=== PATIENT | female | born 1975 | race African-American/Black ===

== ENCOUNTER 2018-04-10 20:32 | Inpatient (IN) | payer MEDICAID ==
[2018-04-10] MEDS ORDERED: ONDANSETRON 4 MG TAB.RAPDIS PO ONE (22:15)
[2018-04-10] MEDS ORDERED: OXYCODONE-ACETAMINOPHEN 5-325 MG TABLET PO ONE (22:15)
--- NOTE | 2018-04-10 22:16 | ER Document Report ---
ED Medical Screen (RME) - General Chief Complaint: Abdominal Pain Stated Complaint: ABDOMINAL PAIN Time Seen by Provider: 04/10/18 22:14 Notes: 42-year-old female with chief complaint of sharp right-sided abdominal pain that started last night and has persisted and worsened today. Pain radiates around to her right flank. Reports nausea, denies vomiting. Denies any other complaints. Only past medical history reported is a . TRAVEL OUTSIDE OF THE [place] IN LAST 30 DAYS: No Past Medical History - Social History Chew tobacco use (# tins/day): No Frequency of alcohol use: None Drug Abuse: None Renal/ Medical History: Denies: Hx Peritoneal Dialysis Physical Exam - Vital signs Vitals: Temp Pulse Resp BP Pulse Ox 98.4 F 109 H 16 140/88 H 98 04/10/18 20:37 04/10/18 20:37 04/10/18 20:37 04/10/18 20:37 04/10/18 20:37 - Abdominal Tenderness: Tender - Positive Jane's sign with guarding in the right upper quadrant and tenderness in the epigastric area. Remaining abdomen is benign Course - Vital Signs Vital signs: Temp Pulse Resp BP Pulse Ox 98.4 F 109 H 16 140/88 H 98 04/10/18 20:37 04/10/18 20:37 04/10/18 20:37 04/10/18 20:37 04/10/18 20:37
[2018-04-10 22:51] LABS: ABSOLUTE LYMPHOCYTES (AUTO) 1.3 10^3/uL (0.5-4.7); ABSOLUTE MONOCYTES (AUTO) 0.6 10^3/uL (0.1-1.4); ABSOLUTE NEUT (AUTO) 6.9 10^3/uL (1.7-8.2); BASOPHILS % (AUTO) 0.2 % (0-2); EOSINOPHILS % (AUTO) 0.4 % (0-6); HEMATOCRIT 44.1 % (36.0-47.0); LYMPHOCYTES % (AUTO) 14.4 % (13-45); MEAN CORPUSCULAR HEMOGLOBIN 32.6 pg (27.0-33.4); MEAN CORPUSCULAR HGB CONC 34.1 g/dL (32.0-36.0); MEAN CORPUSCULAR VOLUME 96 fl (80-97); MONOCYTES % (AUTO) 6.7 % (3-13); PLATELET COUNT 234 10^3/uL (150-450); RED BLOOD COUNT 4.61 10^6/uL (3.72-5.28); RED CELL DISTRIBUTION WIDTH 12.3 % (11.5-14.0); SEGMENTED NEUTROPHILS % (AUTO) 78.3 % (42-78); TOTAL CELLS COUNTED % (AUTO) 100 %; WHITE BLOOD COUNT 8.7 10^3/uL (4.0-10.5)
[2018-04-10 22:56] LABS: APPEARANCE,URINE SLIGHTLY-CLOUDY; BILIRUBIN,URINE NEGATIVE (NEGATIVE); COLOR,URINE YELLOW; GLUCOSE, URINE >=500 mg/dL (NEGATIVE); KETONES,URINE 20 mg/dL (NEGATIVE); LEUKOCYTE ESTERASE,URINE SMALL (NEGATIVE); NITRITE,URINE POSITIVE (NEGATIVE); PROTEIN,URINE 30 mg/dL (NEGATIVE); URINE SPECIFIC GRAVITY 1.036; UROBILINOGEN,URINE NEGATIVE mg/dL (<2.0)
[2018-04-10 23:01] LABS: ALANINE AMINOTRANSFERASE 36 U/L (9-52); ALBUMIN 4.5 g/dL (3.5-5.0); ALKALINE PHOSPHATASE 109 U/L (38-126); ANION GAP 10 (5-19); ASPARTATE AMINO TRANSFERASE 27 U/L (14-36); BILIRUBIN,DIRECT 0.2 mg/dL (0.0-0.4); BILIRUBIN,TOTAL 0.9 mg/dL (0.2-1.3); BLOOD UREA NITROGEN 11 mg/dL (7-20); CALCIUM 9.6 mg/dL (8.4-10.2); CARBON DIOXIDE 27 mmol/L (22-30); CHLORIDE 97 mmol/L (98-107); GLUCOSE 315 mg/dL (75-110); LIPASE 78.1 U/L (23-300); POTASSIUM 4.4 mmol/L (3.6-5.0); SODIUM 134.3 mmol/L (137-145); TOTAL PROTEIN 7.5 g/dL (6.3-8.2)
--- NOTE | 2018-04-11 00:41 | RADIOLOGY REPORT (SQ) ---
EXAM DESCRIPTION: US ABDOMEN LIMITED COMPLETED DATE/TME: 04/10/2018 22:15 CLINICAL HISTORY: 42 years, Female, sharp RUQ and epigastric pain COMPARISON: None. TECHNIQUE: Limited right upper quadrant ultrasound LIMITATIONS: None. FINDINGS: The liver is homogenous in echotexture without focal lesion. No gallstones. Negative sonographic Jane sign. CBD measures 4.8 mm. Visualized pancreas, right kidney are unremarkable. Visualized abdominal aorta are unremarkable. No ascites IMPRESSION: Unremarkable exam copyright 2010 [employer]- All Rights Reserved
[2018-04-11] MEDS ORDERED: KETOROLAC TROMETHAMINE INJ/PF 30 MG/1 ML SDV IV ONE (02:05)
[2018-04-11] MEDS ORDERED: NORMAL SALINE 1000 ML 1,000 ML IV ONE ×2 (02:05→04:09)
--- NOTE | 2018-04-11 02:07 | ER Document Report ---
ED General - General Chief Complaint: Abdominal Pain Stated Complaint: ABDOMINAL PAIN Time Seen by Provider: 04/10/18 22:14 Notes: Patient is a 42-year-old female with a past medical history of obesity, "and I am pretty sure I am diabetic" who presents with approximately 24 hours of progressively worsening right lower quadrant abdominal pain. The patient describes it as a grossly worsening pain to the right lower abdomen that is a dull, throbbing, constant pain. States that it started out as a very mild, dull aching pain when she woke up this morning but became so severe that she needed to leave work tonight. She notes associated nausea but no vomiting. States movement worsens the pain. Ibuprofen has moderately improved the pain. No history of similar symptoms in the past. Only prior surgical history is a C- section. Does not have a local primary care physician. TRAVEL OUTSIDE OF THE [place] IN LAST 30 DAYS: No - Related Data Allergies/Adverse Reactions: No Known Allergies Allergy (Verified 04/11/18 02:29) Past Medical History - General Information source: Patient - Social History Smoking Status: Current Every Day Smoker Chew tobacco use (# tins/day): No Frequency of alcohol use: None Drug Abuse: None Lives with: Spouse/Significant other Family History: Reviewed & Not Pertinent Patient has suicidal ideation: No Patient has homicidal ideation: No Renal/ Medical History: Denies: Hx Peritoneal Dialysis Review of Systems - Review of Systems Notes: Constitutional: Negative for fever. HENT: Negative for sore throat. Eyes: Negative for visual changes. Cardiovascular: Negative for chest pain. Respiratory: Negative for shortness of breath. Gastrointestinal: Positive for abdominal pain, Negative for vomiting and diarrhea Genitourinary: Negative for dysuria. Musculoskeletal: Negative for back pain. Skin: Negative for rash. Neurological: Negative for headaches, weakness or numbness. 10 point ROS negative except as marked above and in HPI. Physical Exam - Vital signs Vitals: Temp Pulse Resp BP Pulse Ox 98.4 F 109 H 16 140/88 H 98 04/10/18 20:37 04/10/18 20:37 04/10/18 20:37 04/10/18 20:37 04/10/18 20:37 Interpretation: Tachycardic Notes: PHYSICAL EXAMINATION: GENERAL: Well-appearing, well-nourished and in no acute distress. HEAD: Atraumatic, normocephalic. EYES: Pupils equal round and reactive to light, extraocular movements intact, sclera anicteric, conjunctiva are normal. ENT: nares patent, oropharynx clear without exudates. Moist mucous membranes. NECK: Normal range of motion, supple without lymphadenopathy LUNGS: Breath sounds clear to auscultation bilaterally and equal. No wheezes rales or rhonchi. HEART: Regular rate and rhythm without murmurs ABDOMEN: Soft, focal tenderness the right lower abdomen but no other areas of localized tenderness, normoactive bowel sounds. No guarding, no rebound. No masses appreciated. EXTREMITIES: Normal range of motion, no pitting or edema. No cyanosis. NEUROLOGICAL: No focal neurological deficits. Moves all extremities spontaneously and on command. PSYCH: Normal mood, normal affect. SKIN: Warm, Dry, normal turgor, no rashes or lesions noted. Course - Re-evaluation Re-evalutation: 04/11/18 02:07 Patient presents with focal right lower quadrant abdominal tenderness that is been getting progressively worse throughout the day today. Concern for possible acute appendicitis. Labs are unremarkable with exception of hyperglycemia, appears to be a new diagnosis of type 2 diabetes. Urinalysis does show findings consistent with a urinary tract infection although I do not believe that this would reasonably account for her right lower quadrant pain which is focal on exam without rebound. But it is quite localized to the area and given that she has had progressive worsening of the pain throughout the day today and quite concerned for an acute appendicitis. Will proceed with CT abdomen pelvis and reassess 04/11/18 04:19 CT of the abdomen and pelvis does reveal a possible early abscess with multiple inflamed bowel loops in the right lower quadrant. Patient has no known history of Crohn's disease or any alternative inflammatory bowel disease. I discussed with the surgeon on-call Dr. Clay who will consult on the patient but does not feel she requires any acute surgical management and questions whether or not there is truly an abscess present. He has requested that I speak to medicine and have them hospitalized the patient for IV antibiotics, management of diab etes. 04/11/18 04:38 I spoke to the nighttime hospitalist Dr. Restrepo who will evaluate the patient although does feel like surgery should admit the patient. I have informed patient about plan for hospitalization and IV antibiotics. - Vital Signs Vital signs: Temp Pulse Resp BP Pulse Ox 98.1 F 91 16 125/77 99 04/11/18 01:20 04/11/18 01:20 04/11/18 01:20 04/11/18 01:20 04/11/18 01:20 - Laboratory Result Diagrams: 04/10/18 22:25 04/10/18 22:25 Laboratory results interpreted by me: 04/10/18 04/10/18 04/10/18 22:25 22:25 22:25 Seg Neutrophils % 78.3 H Sodium 134.3 L Chloride 97 L Creatinine 0.50 L Glucose 315 H Urine Protein 30 H Urine Glucose (UA) >=500 H Urine Ketones 20 H Urine Blood SMALL H Urine Nitrite POSITIVE H Ur Leukocyte Esterase SMALL H - Diagnostic Test Radiology reviewed: Reports reviewed Discharge - Discharge Clinical Impression: Right lower quadrant abdominal pain, Inflammation of small intestine Condition: Fair Disposition: ADMITTED INPATIENT Admitting Provider: Hospitalist Unit Admitted: Medical Floor
--- NOTE | 2018-04-11 04:02 | RADIOLOGY REPORT (SQ) ---
EXAM DESCRIPTION: CT ABDOMEN PELVIS WITH IV CONTRAST COMPLETED DATE/TME: 04/11/2018 02:05 CLINICAL HISTORY: 42 years, Female, rlq pain COMPARISON: None. TECHNIQUE: 733 Images stored on PACS. All CT scanners at this facility use dose modulation, iterative reconstruction, and/or weight based dosing when appropriate to reduce radiation dose to as low as reasonably achievable (ALARA). [facility]: Dose Right [facility]: CareDose [facility]: Dose Right [facility]: Teradose 4D [facility]: [employer] LIMITATIONS: None. FINDINGS: Visualized lung bases are unremarkable. Osseous structures are grossly intact. Fatty infiltrative change to the liver. The spleen, adrenal glands, pancreas, kidneys are unremarkable. The gallbladder is present. Normal appendix. No gross evidence for bowel obstruction. However, there are abnormal thick-walled fluid-filled loops of small bowel distally in the right lower quadrant with surrounding inflammatory change. Possible small developing abscess/phlegmon in the anterior lower right hemipelvis, measuring approximately 2.6 x 1.9 x 2.2 centimeters.. There is no free air. IUD in place. Air and fluid in the vaginal cuff. Correlate with menstrual history. IMPRESSION: Abnormal, thick-walled fluid-filled loops of small bowel distally with surrounding inflammatory change and phlegmon. Possible small developing abscess also noted. Correlate with any history of inflammatory bowel disease. No obstruction at this time. Diffuse fatty infiltrative change to the liver. TECHNICAL DOCUMENTATION: Quality ID # 436: Final reports with documentation of one or more dose reduction techniques (e.g., Automated exposure control, adjustment of the mA and/or kV according to patient size, use of iterative reconstruction technique) copyright 2011 [employer]- All Rights Reserved
[2018-04-11] MEDS ORDERED: PIPERACILLIN/TAZOBACTAM 3.375 GM VIAL IV ONE (04:08)
[2018-04-11] MEDS ORDERED: MORPHINE SULFATE 10 MG/ML INJ IV PRN ×5 (04:09→07:35)
[2018-04-11] MEDS ORDERED: INSULIN REG, HUMAN 100 UNIT/ML 3 ML VIAL (PYX) SUBCUT ONE (04:10)
[2018-04-11] MEDS ORDERED: ONDANSETRON HCL INJ/PF 4 MG/2 ML SDV IV PRN ×2 (04:56→07:35)
[2018-04-11] MEDS ORDERED: RINGERS SOLUTION,LACTATED 1,000 ML IV PRN (04:56)
[2018-04-11] MEDS ORDERED: LABETALOL HCL INJ 20 MG/4 ML DISP.SYRIN IV PRN (05:09)
[2018-04-11] MEDS ORDERED: HYDRALAZINE HCL INJ/PF 20 MG/1 ML SDV IV PRN (05:09)
[2018-04-11] MEDS ORDERED: ACETAMINOPHEN 650 MG SUPP.RECT PR PRN (05:09)
[2018-04-11] MEDS: HEPARIN SOD (PORCINE) 5,000 UNIT/ML 1 ML SYRINGE SUBCUT SCH ×3 (05:28→23:25)
--- NOTE | 2018-04-11 05:28 | PDOC H&P ---
History of Present Illness Admission Date/PCP: 04/11/18 04:57 FRANCES CLARK MD History of Present Illness: EVIE OLSON is a 42 year old female Past Medical History Cardiac Medical History: Reports: None Pulmonary Medical History: Reports: None EENT Medical History: Reports: None Neurological Medical History: Reports: None Endocrine Medical History: Reports: None Renal/ Medical History: Reports: None Malignancy Medical History: Reports: None GI Medical History: Reports: None Musculoskeltal Medical History: Reports: None Skin Medical History: Reports: None Psychiatric Medical History: Reports: None Traumatic Medical History: Reports: None Hematology: Reports: None Infectious Medical History: Reports: None Past Surgical History Past Surgical History: Reports: None Social History Lives with: Spouse/Significant other Smoking Status: Current Every Day Smoker Family History Family History: Reviewed & Not Pertinent Parental Family History Reviewed: No Children Family History Reviewed: No Sibling(s) Family History Reviewed.: No Medication/Allergy Allergies/Adverse Reactions: No Known Allergies Allergy (Verified 04/11/18 02:29) Physical Exam Vital Signs: Temp Pulse Resp BP Pulse Ox 98.4 F 91 16 130/94 H 100 04/11/18 04:51 04/11/18 01:20 04/11/18 04:51 04/11/18 04:51 04/11/18 04:51 Intake & Output 04/09/18 04/10/18 04/11/18 06:59 06:59 06:59 Intake Total 1000 Balance 1000 Weight 93.3 kg General appearance: PRESENT: mild distress Head exam: PRESENT: atraumatic Neck exam: PRESENT: full ROM Respiratory exam: PRESENT: clear to auscultation jina Cardiovascular exam: PRESENT: RRR Pulses: PRESENT: normal carotid pulses, normal radial pulses, normal femoral pulses GI/Abdominal exam: PRESENT: other - abd softly distended, few bs tender in rlq wth rebound. Extremities exam: PRESENT: full ROM Musculoskeletal exam: PRESENT: ambulatory Neurological exam: PRESENT: alert, awake, oriented to time, oriented to situation Skin exam: PRESENT: warm Results Laboratory Results: 04/10/18 22:25 04/10/18 22:25 04/10/18 04/10/18 04/10/18 22:25 22:25 22:25 WBC 8.7 RBC 4.61 Hgb 15.0 Hct 44.1 MCV 96 MCH 32.6 MCHC 34.1 RDW 12.3 Plt Count 234 Seg Neutrophils % 78.3 H Lymphocytes % 14.4 Monocytes % 6.7 Eosinophils % 0.4 Basophils % 0.2 Absolute Neutrophils 6.9 Absolute Lymphocytes 1.3 Absolute Monocytes 0.6 Absolute Eosinophils 0.0 Absolute Basophils 0.0 Sodium 134.3 L Potassium 4.4 Chloride 97 L Carbon Dioxide 27 Anion Gap 10 BUN 11 Creatinine 0.50 L Est GFR ( Amer) > 60 Est GFR (Non-Af Amer) > 60 Glucose 315 H Calcium 9.6 Total Bilirubin 0.9 AST 27 ALT 36 Alkaline Phosphatase 109 Total Protein 7.5 Albumin 4.5 Lipase 78.1 Urine Color YELLOW Urine Appearance SLIGHTLY-CLOUDY Urine pH 5.0 Ur Specific [place] 1.036 Urine Protein 30 H Urine Glucose (UA) >=500 H Urine Ketones 20 H Urine Blood SMALL H Urine Nitrite POSITIVE H Ur Leukocyte Esterase SMALL H Urine WBC (Auto) 13 Urine RBC (Auto) 2 Impressions: Abdomen Ultrasound 04/10/18 22:15 IMPRESSION: Unremarkable exam copyright 2010 [employer]- All Rights Reserved Abdomen/Pelvis CT 04/11/18 02:05 IMPRESSION: Abnormal, thick-walled fluid-filled loops of small bowel distally with surrounding inflammatory change and phlegmon. Possible small developing abscess also noted. Correlate with any history of inflammatory bowel disease. No obstruction at this time. Diffuse fatty infiltrative change to the liver. TECHNICAL DOCUMENTATION: Quality ID # 436: Final reports with documentation of one or more dose reduction techniques (e.g., Automated exposure control, adjustment of the mA and/or kV according to patient size, use of iterative reconstruction technique) copyright 2011 [employer]- All Rights Reserved Assessment & Plan - Inpatient Certification Medical Necessity: Need for Pain Control, Need for IV Antibiotics, Need for Surgery - Plan Summary Plan Summary: pt with acute onset of abd pain starting earlier this evening ct scan shows phlegmon, thickened small bowel loops abscess pt with peritoneal signs on exam c/w peritonitis r/o small bowel perforation, meckels diverticulitis doubt crohns plan on diagnostic laparoscopy, possible laparotomy possible small bowel resection I have explained risks and benifits to pt and family present possible need of colostomy possible need for additional surgery infection pulm embolism stroke mi injury to adjacent organs pt understnds and agreees to proceed.
--- NOTE | 2018-04-11 05:46 | PDOC CONSULTATION ---
Consultation Consult Date: 04/11/18 Attending physician:: SHIRLEY RUIZ Consult reason:: Abdominal pain in a diabetic History of Present Illness Admission Date/PCP: 04/11/18 04:57 FRANCES CLARK MD Patient complains of: Abdominal pain History of Present Illness: EVIE OLSON is a 42 year old female who presented to the emergency room with a 1 day history of gradually worsening right lower quadrant abdominal pain. The pain is now a severe, constant, internal squeezing intense pressure localized in the right lower abdomen bounded medially at the midline, just above the pubic symphysis for the lower aspect and laterally extends to the mid clavicular line with its superior boundary at the level of the umbilicus. The pain is intensified by trying to eat or drink anything and is also significantly worse when she moves or bears weight on her right side. She has no pain or burning with voiding but the active voiding (pressure to express urine) causes increased discomfort in her abdomen at the site indicated previously. She denies nausea and vomiting. She had a normal bowel movement within 12 hours prior to the onset of her abdominal pain but has not had a bowel movement since that time. In the emergency room she was found to have right lower quadrant pain and a CT scan revealing a phlegmon and marked inflammatory changes without definitive abscess in the right lower quadrant. The appendix was judged to be normal on CT scan. Patient also has a history of obesity and diabetes mellitus type 2 [id number]. She will be admitted by the surgical service for further evaluation and treatment of her right lower quadrant pain and we will participate in her postoperative management for her diabetic control as required. Past Medical History Cardiac Medical History: Denies: Coronary Artery Disease, DVT, Hyperlipidema, Hypertension, Pulmonary Embolism Pulmonary Medical History: Denies: Asthma, Chronic Obstructive Pulmonary Disease (COPD), Respiratory Failure EENT Medical History: Reports: None Neurological Medical History: Denies: Multiple Sclerosis, Seizures Endocrine Medical History: Reports: Diabetes Mellitus Type 2, Obesity Denies: Diabetes Mellitus Type 1, Hyperthyroidism, Hypothyroidism Renal/ Medical History: Denies: Chronic Kidney Disease, Nephrolithiasis Malignancy Medical History: Reports: None GI Medical History: Denies: Cirrhosis, Gastroesophageal Reflux Disease, Hepatitis, Peptic Ulcer Disease Musculoskeltal Medical History: Denies: Arthritis, Fibromyalgia, Gout Skin Medical History: Denies: Eczema, Psoriasis Psychiatric Medical History: Reports: Tobacco Dependency Denies: Alcohol Dependency, Substance Abuse Traumatic Medical History: Reports: None Hematology: Denies: Anemia, Bleeding Tendencies Infectious Medical History: Reports: None Past Surgical History Past Surgical History: Reports: Section Social History Information Source: Patient Lives with: Family, Spouse/Significant other Smoking Status: Current Every Day Smoker Frequency of Alcohol Use: Social Amount of Alcoholic Beverages Per Day: Drinks on average 1-2 beers daily Hx Recreational Drug Use: Yes Drugs: Marijuana Hx Prescription Drug Abuse: No - Advance Directive Resuscitation Status: Full Code Surrogate healthcare decision maker:: Vinod Alvarez Family History Family History: DM, Hypertension Parental Family History Reviewed: Yes Children Family History Reviewed: No Sibling(s) Family History Reviewed.: Yes Medication/Allergy Allergies/Adverse Reactions: No Known Allergies Allergy (Verified 04/11/18 02:29) Review of Systems Constitutional: ABSENT: chills, fever(s) Eyes: ABSENT: visual disturbances, other - Ocular pain Ears: ABSENT: hearing changes, other - Ear pain Nose, Mouth, and Throat: ABSENT: mouth pain, sore throat Cardiovascular: ABSENT: chest pain, dyspnea on exertion, edema, orthropnea, palpitations Respiratory: ABSENT: cough, dyspnea Gastrointestinal: PRESENT: as per HPI, abdominal pain. ABSENT: constipation, diarrhea, nausea, vomiting Genitourinary: ABSENT: dysuria, hematuria Musculoskeletal: ABSENT: deformity, joint swelling Integumentary: ABSENT: pruritus, rash Neurological: ABSENT: confusion, convulsions Psychiatric: ABSENT: anxiety, depression Endocrine: ABSENT: cold intolerance, heat intolerance Hematologic/Lymphatic: ABSENT: easy bleeding, easy bruising Physical Exam Vital Signs: Temp Pulse Resp BP Pulse Ox 98.4 F 91 16 130/94 H 100 04/11/18 04:51 04/11/18 01:20 04/11/18 04:51 04/11/18 04:51 04/11/18 04:51 Intake & Output 04/09/18 04/10/18 04/11/18 23:59 23:59 23:59 Intake Total 1000 Balance 1000 Weight 93.3 kg General appearance: PRESENT: cooperative, mild distress - Secondary to right lower quadrant abdominal pain despite having received morphine within the last 1 hour., obese Head exam: PRESENT: atraumatic, normocephalic Eye exam: PRESENT: conjunctiva pink, EOMI. ABSENT: scleral icterus Ear exam: PRESENT: normal external ear exam. ABSENT: bleeding, drainage Mouth exam: PRESENT: dry mucosa, neck supple Neck exam: ABSENT: thyromegaly, tracheal deviation Respiratory exam: PRESENT: clear to auscultation jina, symmetrical, unlabored Cardiovascular exam: PRESENT: RRR. ABSENT: clicks, gallop, rubs Pulses: PRESENT: normal radial pulses, normal dorsalis pedis pul Vascular exam: PRESENT: normal capillary refill. ABSENT: pallor GI/Abdominal exam: PRESENT: normal bowel sounds, soft, tenderness - Localized in the right lower abdomen bounded medially at the midline, just above the pubic symphysis for the lower aspect and laterally extends to the mid clavicular line with its superior boundary at the level of the umbilicus Rectal exam: PRESENT: deferred Extremities exam: ABSENT: joint swelling, pedal edema Musculoskeletal exam: PRESENT: full ROM, normal inspection Neurological exam: PRESENT: alert, oriented to person, oriented to place, oriented to time, oriented to situation, CN II-XII grossly intact. ABSENT: motor sensory deficit Psychiatric exam: PRESENT: appropriate affect, normal mood Skin exam: PRESENT: dry, intact, warm. ABSENT: jaundice, rash, urticaria Results Laboratory Results: 04/10/18 22:25 04/10/18 22:25 04/10/18 04/10/18 04/10/18 22:25 22:25 22:25 WBC 8.7 RBC 4.61 Hgb 15.0 Hct 44.1 MCV 96 MCH 32.6 MCHC 34.1 RDW 12.3 Plt Count 234 Seg Neutrophils % 78.3 H Lymphocytes % 14.4 Monocytes % 6.7 Eosinophils % 0.4 Basophils % 0.2 Absolute Neutrophils 6.9 Absolute Lymphocytes 1.3 Absolute Monocytes 0.6 Absolute Eosinophils 0.0 Absolute Basophils 0.0 Sodium 134.3 L Potassium 4.4 Chloride 97 L Carbon Dioxide 27 Anion Gap 10 BUN 11 Creatinine 0.50 L Est GFR ( Amer) > 60 Est GFR (Non-Af Amer) > 60 Glucose 315 H Calcium 9.6 Total Bilirubin 0.9 AST 27 ALT 36 Alkaline Phosphatase 109 Total Protein 7.5 Albumin 4.5 Lipase 78.1 Urine Color YELLOW Urine Appearance SLIGHTLY-CLOUDY Urine pH 5.0 Ur Specific [place] 1.036 Urine Protein 30 H Urine Glucose (UA) >=500 H Urine Ketones 20 H Urine Blood SMALL H Urine Nitrite POSITIVE H Ur Leukocyte Esterase SMALL H Urine WBC (Auto) 13 Urine RBC (Auto) 2 Impressions: Abdomen Ultrasound 04/10/18 22:15 IMPRESSION: Unremarkable exam copyright 2010 [employer]- All Rights Reserved Abdomen/Pelvis CT 04/11/18 02:05 IMPRESSION: Abnormal, thick-walled fluid-filled loops of small bowel distally with surrounding inflammatory change and phlegmon. Possible small developing abscess also noted. Correlate with any history of inflammatory bowel disease. No obstruction at this time. Diffuse fatty infiltrative change to the liver. TECHNICAL DOCUMENTATION: Quality ID # 436: Final reports with documentation of one or more dose reduction techniques (e.g., Automated exposure control, adjustment of the mA and/or kV according to patient size, use of iterative reconstruction technique) copyright 2010 [employer]- All Rights Reserved Assessment & Plan - Diagnosis (1) Diabetes mellitus type 2 in obese Is this a current diagnosis for this admission?: Yes Plan: The patient's diabetes will be managed postoperatively by the hospitalist service. Until such time as she is able to eat a diabetic diet she should be managed with q. 4 or q. 6-hour Accu-Cheks with a sliding scale for control utilizing regular insulin. (2) Obesity (BMI 30-39.9) Is this a current diagnosis for this admission?: Yes Plan: Patient's obesity will be addressed with a consultation for dietary services to discuss weight loss and lifestyle changes with the patient after her surgical recovery has begun. (3) Tobacco use disorder, moderate, dependence Is this a current diagnosis for this admission?: Yes Plan: Smoking cessation has been advised. Smoking cessation counseling was given. A nicotine replacement patch will be made available for the patient. (4) Right lower quadrant abdominal pain Is this a current diagnosis for this admission?: Yes Plan: Patient is being treated by the surgical service and plans are to take her to surgery [facility]. Initial antibiotic orders have been entered by myself to facilitate the patient's treatment. - Time Time Spent: 30 to 50 Minutes Smoking Cessation Education: 3 to 10 minutes Anticipated discharge: Home - Inpatient Certification Based on my medical assessment, after consideration of the patient's comorbidities, presenting symptoms, or acuity I expect that the services needed warrant INPATIENT care.: Yes I certify that my determination is in accordance with my understanding of Medicare's requirements for reasonable and necessary INPATIENT services [42 CFR 412.3e].: Yes Medical Necessity: Need Close Monitoring Due to Risk of Patient Decompensation, Need For IV Fluids, Need for Pain Control, Need for IV Antibiotics, Need for Surgery, Risk of Complication if Not Cared For in Hospital
[2018-04-11] MEDS ORDERED: LEVOFLOXACIN 750 MG/D5W RTU 750 MG/150 ML RTUPB IV SCH (06:00)
[2018-04-11] MEDS ORDERED: MIDAZOLAM 2 MG/2 ML INJ ONE (06:18)
[2018-04-11] MEDS ORDERED: HYDROMORPHONE HCL INJ/PF 2 MG/ML AMPULE ONE (06:18)
[2018-04-11] MEDS ORDERED: FENTANYL CITRATE INJ/PF 100 MCG/2 ML AMPUL ONE ×2 (06:18→12:07)
[2018-04-11] MEDS ORDERED: PROPOFOL INJ 200 MG/20 ML VIAL IV ONE (06:19)
[2018-04-11] MEDS ORDERED: ACETAMINOPHEN 1,000 MG/100 ML RTUPB IV ONE (06:19)
[2018-04-11] MEDS ORDERED: SUGAMMADEX SODIUM 200 MG/2 ML SDV IV ONE (06:32)
[2018-04-11] MEDS ORDERED: DIPHENHYDRAMINE HCL 50 MG/ML VIAL IV PRN (07:35)
[2018-04-11] MEDS ORDERED: MEPERIDINE HCL/PF INJ 25 MG/1 ML DISP.SYRIN IV PRN (07:35)
[2018-04-11] MEDS ORDERED: PROMETHAZINE HCL INJ 25 MG/1 ML VIAL IV PRN ×2 (07:35)
[2018-04-11] MEDS ORDERED: FENTANYL CITRATE INJ/PF 100 MCG/2 ML AMPUL IV PRN ×3 (07:35)
[2018-04-11] MEDS ORDERED: LIDOCAINE 1%/EPINEPHRINE INJ 20 ML VIAL ONE (08:41)
[2018-04-11] MEDS ORDERED: PIPERACILLIN/TAZOBACTAM 4.5 GM VIAL IV SCH (09:00)
[2018-04-11] MEDS ORDERED: DEXTROSE 5%-LACTATED RINGERS 1,000 ML IV PRN (09:06)
[2018-04-11] MEDS ORDERED: ONDANSETRON HCL INJ/PF 4 MG/2 ML SDV ONE (09:20)
[2018-04-11] MEDS ORDERED: DEXAMETHASONE SOD PHOSPHATE INJ 4 MG/1 ML VIAL ONE (09:21)
[2018-04-11] MEDS ORDERED: CEFOXITIN 1 GM/D5W RTU 1 GM/50 ML RTUPB IV SCH (10:00)
[2018-04-11] MEDS ORDERED: DOXYCYCLINE HYCLATE INJ 100 MG VIAL IV SCH (10:00)
[2018-04-11] MEDS: FAMOTIDINE INJ/PF 20 MG/2 ML SDV IV SCH ×2 (13:25→23:22)
[2018-04-11] MEDS: MORPHINE SULFATE 10 MG/ML INJ IV PRN (13:25)
[2018-04-11] MEDS: PANTOPRAZOLE SODIUM 40 MG VIAL IV SCH ×2 (13:26→23:22)
[2018-04-11 13:39] LABS: HEMATOCRIT 39.7 % (36.0-47.0); HEMOGLOBIN 13.5 g/dL (12.0-15.5); MEAN CORPUSCULAR VOLUME 97 fl (80-97); PLATELET COUNT 205 10^3/uL (150-450); RED CELL DISTRIBUTION WIDTH 12.3 % (11.5-14.0)
[2018-04-11] MEDS ORDERED: INSULIN REG, HUMAN 100 UNIT/ML 3 ML VIAL (PYX) ONE ×2 (13:44→18:00)
[2018-04-11 14:02] LABS: FREE T3 4.74 pg/mL (2.77-5.27); FREE T4 (FREE THYROXINE) 2.31 ng/dL (0.78-2.19)
[2018-04-11] MEDS: CEFOXITIN SODIUM 2 GM in DEXTROSE 5%-WATER 100 ML IV SCH ×2 (14:09→23:23)
[2018-04-11] MEDS: OXYCODONE-ACETAMINOPHEN 5-325 MG TABLET PO PRN ×2 (14:09→20:26)
[2018-04-11 14:16] LABS: THYROID STIMULATING HORMONE 0.39 uIU/mL (0.47-4.68)
[2018-04-11] MEDS ORDERED: ROCURONIUM BROMIDE INJ 50 MG/5 ML VIAL IV ONE (14:32)
[2018-04-11] MEDS ORDERED: SUCCINYLCHOLINE CHLORIDE INJ 200 MG/10 ML VIAL ONE (14:32)
[2018-04-11] MEDS ORDERED: LIDOCAINE 2% INJ-PF (20 MG/ML) 2 ML AMPUL ONE (14:32)
[2018-04-11 14:41] LABS: WHITE BLOOD COUNT 9.9 10^3/uL (4.0-10.5)
[2018-04-11] MEDS: KETOROLAC TROMETHAMINE INJ/PF 30 MG/1 ML SDV IV SCH ×3 (15:16→23:23)
[2018-04-11] MEDS: DOXYCYCLINE HYCLATE 100 MG in DEXTROSE 5%-WATER 250 ML IV SCH (16:43)
--- NOTE | 2018-04-11 16:44 | Operative Report ---
Operative Report DATE OF SURGERY: 04/11/18 PREOPERATIVE DIAGNOSIS: peritonitis POSTOPERATIVE DIAGNOSIS: pelvic inflmmatory disease OPERATION: diagnostic laparoscopy,lysis of adhesions,abdominal washout,appendectomy SURGEON: SHIRLEY RUIZ ANESTHESIA: GA TISSUE REMOVED OR ALTERED: appendix,omentum COMPLICATIONS: none ESTIMATED BLOOD LOSS: 25cc INTRAOPERATIVE FINDINGS: pelvic inflammatory disease PROCEDURE: see dictation
[2018-04-11] MEDS ORDERED: DEXTROSE 50%-WATER SYRINGE 12.5 GM/25 ML DOSE IV PRN (18:00)
[2018-04-11] MEDS ORDERED: DEXTROSE 40% GEL 15 GM TUBE X 2 PO PRN (18:00)
[2018-04-11] MEDS ORDERED: GLUCAGON,HUMAN RECOMB 1 MG INJ IM PRN ×2 (18:00→19:47)
[2018-04-11] MEDS ORDERED: DEXTROSE 40% GEL 15 GM TUBE PO PRN ×3 (18:00→19:47)
[2018-04-11] MEDS ORDERED: DEXTROSE 50%-WATER SYRINGE 25 GM/50 ML DOSE IV PRN (18:00)
[2018-04-11] MEDS ORDERED: INSULIN REG, HUMAN 100 UNIT/ML 3 ML VIAL (PYX) SUBCUT PRN (18:00)
[2018-04-11 19:37] LABS: CHLAM PCR NOT DETECTED (NOT DETECT); GON PCR NOT DETECTED (NOT DETECT)
[2018-04-11] MEDS ORDERED: DEXTROSE 50%-WATER 25 GM/50 ML DISP.SYRIN IV PRN ×2 (19:47)
[2018-04-11] MEDS ORDERED: INSULIN GLARGINE,HUM.REC.ANLOG 300 UNIT/3 ML INSULN.PEN SUBCUT SCH (22:00)
[2018-04-11] MEDS: INSULIN LISPRO 100 UNIT/ML 3 ML VIAL SUBCUT PRN (23:25)
--- NOTE | 2018-04-12 01:17 | OPERATIVE REPORT E ---
Operative Report NAME: EVIE OLSON : 1975 AGE: 42Y DATE OF SURGERY: 04/11/2018 ROOM: 207 PREOPERATIVE DIAGNOSIS: ACUTE ABDOMEN WITH PERITONITIS. POSTOPERATIVE DIAGNOSIS: PELVIC INFLAMMATORY DISEASE. OPERATION: DIAGNOSTIC LAPAROSCOPY WITH LYSIS OF ADHESIONS, ABDOMINAL WASHOUT, APPENDECTOMY. SURGEON: SHIRLEY RUIZ M.D. INTRAOPERATIVE CONSULT: Dr. Lemon, CPO. INDICATIONS FOR PROCEDURE: This patient is a 42-year-old female who presented to the emergency room with relatively acute onset episode of severe lower abdominal pain. CT scan was obtained which showed phlegmon of the right lower quadrant but a normal appendix. She had quite a bit of tenderness on initial presentation with rebound, and it was felt that she had peritonitis and therefore brought to the operating room for this procedure. PROCEDURE: The patient was brought to the operating room in awake, alert, and stable condition, placed on the operating table in supine position, induced under general anesthesia and intubated. The abdomen was prepped and draped in the usual sterile manner for the procedure. A Veress needle was placed into the umbilicus and the abdomen was insufflated with 6 L of CO2 gas. An infraumbilical 10 mm incision was made with a 12 blade and a [address] in the abdominal cavity. Intraabdominal visualization revealed no evidence of a Veress needle or trocar injury. Two lateral ports on the left side were placed under direct vision. We turned our attention to the right lower quadrant. There was a phlegmon in the right lower quadrant with a number of loops of small bowel adhesed out to the anterior abdominal wall and the fundus of the uterus. It appeared that the bowel loops were adhesed tightly to the uterus as well as to the right ovarian tube and there was fibrinous exudate and purulence around both the tube and the uterus and the small bowel loops. Once we were able to break away these loculations and free up the small bowel, I asked Dr. Lemon from [facility]PO to come into the operating room and have a look. She felt that the tube was injected with pus and there was pus draining from the outside of the tube as well as the fibrinous exudate in the cul-de-sac and the right pelvic side wall. She felt that this was consistent with pelvic inflammatory disease. At this point, we copiously irrigated the lower abdomen with normal saline and suctioned dry. We turned our attention to the appendix. We placed it on traction. We divided the mesoappendix with a Harmonic scalpel then came across the base of the appendix on the cecum with one firing of the Endo ALDO stapler with a blue load, removed out through the Endo Bag and removed it through the umbilical port site. In addition to that, there was some fibrinous exudate around a small tongue of omentum, which was divided with a LigaSure device and sent also to the pathologist. We cultured the fibrinous exudate and sent that down as an anaerobic and aerobic culture. Once this was completed, we identified no further evidence of any injury to the small bowel and we ran that small bowel for approximately 4 feet to make sure that there was not a Meckel's diverticulum. We then again irrigated the pelvis with normal saline, suctioned dry and then reduced the pneumoperitoneum and closed the umbilical port site with 1 stitch of 0 Vicryl in the fascia and then closed all skin sutures with intracuticular 3-0 Vicryl and Steri-Strips completed the procedure. Estimated blood loss was less than 25 mL. Sponge and needles were correct x2. The patient was awakened in the operating room, extubated, transferred to recovery in stable condition. No complications. DICTATING PHYSICIAN: SHIRLEY RUIZ M.D. [id number] PHY#: [id number] ID: [id number] JOB#: [id number] ACCT: [id number] cc:SHIRLEY RUIZ M.D. >
[2018-04-12] MEDS: OXYCODONE-ACETAMINOPHEN 5-325 MG TABLET PO PRN (04:50)
[2018-04-12] MEDS: KETOROLAC TROMETHAMINE INJ/PF 30 MG/1 ML SDV IV SCH ×4 (06:01→23:19)
[2018-04-12] MEDS: CEFOXITIN SODIUM 2 GM in DEXTROSE 5%-WATER 100 ML IV SCH ×3 (06:01→21:33)
[2018-04-12] MEDS: HEPARIN SOD (PORCINE) 5,000 UNIT/ML 1 ML SYRINGE SUBCUT SCH ×3 (06:02→21:31)
[2018-04-12] MEDS: DOXYCYCLINE HYCLATE 100 MG in DEXTROSE 5%-WATER 250 ML IV SCH ×2 (07:27→18:10)
[2018-04-12 07:51] LABS: ABSOLUTE LYMPHOCYTES (AUTO) 1.2 10^3/uL (0.5-4.7); ABSOLUTE MONOCYTES (AUTO) 0.3 10^3/uL (0.1-1.4); ABSOLUTE NEUT (AUTO) 4.9 10^3/uL (1.7-8.2); BASOPHILS % (AUTO) 0.3 % (0-2); EOSINOPHILS % (AUTO) 0.1 % (0-6); HEMATOCRIT 31.5 % (36.0-47.0); LYMPHOCYTES % (AUTO) 18.3 % (13-45); MEAN CORPUSCULAR HEMOGLOBIN 33.2 pg (27.0-33.4); MEAN CORPUSCULAR HGB CONC 34.5 g/dL (32.0-36.0); MEAN CORPUSCULAR VOLUME 96 fl (80-97); MONOCYTES % (AUTO) 5.3 % (3-13); PLATELET COUNT 164 10^3/uL (150-450); RED BLOOD COUNT 3.27 10^6/uL (3.72-5.28); RED CELL DISTRIBUTION WIDTH 12.4 % (11.5-14.0); TOTAL CELLS COUNTED % (AUTO) 100 %; WHITE BLOOD COUNT 6.4 10^3/uL (4.0-10.5)
[2018-04-12 07:52] LABS: HEMOGLOBIN 10.9 g/dL (12.0-15.5)
[2018-04-12 08:02] LABS: BLOOD UREA NITROGEN 9 mg/dL (7-20); CALCIUM 7.8 mg/dL (8.4-10.2); GLUCOSE 289 mg/dL (75-110); POTASSIUM 3.2 mmol/L (3.6-5.0)
[2018-04-12 08:08] LABS: CARBON DIOXIDE 27 mmol/L (22-30); CHLORIDE 101 mmol/L (98-107); SODIUM 132.2 mmol/L (137-145)
[2018-04-12 08:11] LABS: ANION GAP 4 (5-19)
[2018-04-12] MEDS ORDERED: POTASSI CL 20 MEQ/50 ML RIDER 20 MEQ/50 ML RTUPB IV ONE ×2 (08:14→12:30)
[2018-04-12] MEDS: FAMOTIDINE INJ/PF 20 MG/2 ML SDV IV SCH ×2 (10:04→21:31)
[2018-04-12] MEDS: PANTOPRAZOLE SODIUM 40 MG VIAL IV SCH ×2 (10:05→21:31)
[2018-04-12] MEDS: INSULIN LISPRO 100 UNIT/ML 3 ML VIAL SUBCUT SCH ×2 (10:08→15:00)
[2018-04-12] MEDS: INSULIN LISPRO 100 UNIT/ML 3 ML VIAL SUBCUT PRN ×4 (10:10→21:47)
[2018-04-12] MEDS ORDERED: CALCIUM GLUCONATE 1000 MG/10 ML INJ IV ONE ×2 (11:24→13:52)
--- NOTE | 2018-04-12 12:00 | PDOC PROGRESS REPORT ---
Subjective Progress Note for:: 04/12/18 Reason For Visit: ABDOMINAL ABSCESS pod #1 s/p diagnostic laparoscopy abdominal washout appendectomy Physical Exam Vital Signs: Temp Pulse Resp BP Pulse Ox 98.4 F 88 16 103/71 97 04/12/18 07:41 04/12/18 07:41 04/12/18 07:41 04/12/18 07:41 04/12/18 07:41 Intake & Output 04/11/18 04/12/18 04/13/18 06:59 06:59 06:59 Intake Total 1000 3412 300 Output Total 2720 Balance 1000 692 300 Weight 93.3 kg 98.7 kg GI/Abdominal exam: PRESENT: normal bowel sounds, soft Results Laboratory Results: 04/12/18 06:36 04/12/18 06:36 04/11/18 04/11/18 04/11/18 13:01 13:01 13:01 WBC 9.9 RBC 4.10 Hgb 13.5 Hct 39.7 MCV 97 MCH 33.0 MCHC 34.0 RDW 12.3 Plt Count 205 Seg Neutrophils % Lymphocytes % Monocytes % Eosinophils % Basophils % Absolute Neutrophils Absolute Lymphocytes Absolute Monocytes Absolute Eosinophils Absolute Basophils Sodium Potassium Chloride Carbon Dioxide Anion Gap BUN Creatinine Est GFR ( Amer) Est GFR (Non-Af Amer) Glucose Calcium Magnesium Amylase < 30 L TSH 0.39 L Free T4 2.31 H Free T3 pg/mL 4.74 04/12/18 04/12/18 06:36 06:36 WBC 6.4 RBC 3.27 L Hgb 10.9 L D Hct 31.5 L MCV 96 MCH 33.2 MCHC 34.5 RDW 12.4 Plt Count 164 Seg Neutrophils % 76.0 Lymphocytes % 18.3 Monocytes % 5.3 Eosinophils % 0.1 Basophils % 0.3 Absolute Neutrophils 4.9 Absolute Lymphocytes 1.2 Absolute Monocytes 0.3 Absolute Eosinophils 0.0 Absolute Basophils 0.0 Sodium 132.2 L Potassium 3.2 L Chloride 101 Carbon Dioxide 27 Anion Gap 4 L BUN 9 Creatinine 0.45 L Est GFR ( Amer) > 60 Est GFR (Non-Af Amer) > 60 Glucose 289 H Calcium 7.8 L Magnesium 1.7 Amylase TSH Free T4 Free T3 pg/mL Impressions: Abdomen Ultrasound 04/10/18 22:15 IMPRESSION: Unremarkable exam copyright 2011 [employer]- All Rights Reserved Abdomen/Pelvis CT 04/11/18 02:05 IMPRESSION: Abnormal, thick-walled fluid-filled loops of small bowel distally with surrounding inflammatory change and phlegmon. Possible small developing abscess also noted. Correlate with any history of inflammatory bowel disease. No obstruction at this time. Diffuse fatty infiltrative change to the liver. TECHNICAL DOCUMENTATION: Quality ID # 436: Final reports with documentation of one or more dose reduction techniques (e.g., Automated exposure control, adjustment of the mA and/or kV according to patient size, use of iterative reconstruction technique) copyright 2011 [employer]- All Rights Reserved Assessment & Plan - Plan Summary Plan Summary: has been passing flatus will advnce to soft diet cont iv abx discussed with medicine about rx of the new onset diabetes will need diabetic teaching and treatment plan before discharge.
[2018-04-12] MEDS ORDERED: MAGNESIUM SULFATE/D5W 1 GM/100 ML RTUPB IV ONE (12:30)
--- NOTE | 2018-04-12 13:35 | PDOC PROGRESS REPORT ---
Subjective Progress Note for:: 04/12/18 Subjective:: EVIE OLSON is a 42 year old female obesity and untreated diabetes who presented to ED on 04/10/2018 complaining of gradually worsening right lower quadrant abdominal pain. She explained the pain as severe, constant, internal squeezing intense pressure localized in the right lower abdomen bounded medially at the midline, just above the pubic symphysis for the lower aspect and laterally extends to the mid clavicular line with its superior boundary at the level of the umbilicus. The pain is intensified by trying to eat or drink anything and is also significantly worse when she moves or bears weight on her right side. She has no pain or burning with voiding but the active voiding (pressure to express urine) causes increased discomfort in her abdomen at the site indicated previously. She denies nausea and vomiting. She had a normal bowel movement within 12 hours prior to the onset of her abdominal pain but has not had a bowel movement since that time. In the emergency room she was found to have right lower quadrant pain and a CT scan revealing a phlegmon and marked inflammatory changes without definitive abscess in the right lower quadrant. Th e appendix was judged to be normal on CT scan. She was admitted under surgical service and hospitalist was consulted for comanagement. 04/12/2018. Day 2 status post s/p diagnostic laparoscopy abdominal washout and appendectomy. Encounter patient is comfortably resting in bed in no apparent distress. Sitting with abdominal pain has improved post surgery, she has not had a bowel movement since admission however is passing gas, she is p.o. tolerant. She stating that she was told that she has diabetes however was never treated for it. She is denying any fever, shortness of breath, chills, chest pain, nausea, vomiting, diarrhea or any urinary symptoms. Reason For Visit: ABDOMINAL ABSCESS Physical Exam Vital Signs: Temp Pulse Resp BP Pulse Ox 98.3 F 92 16 112/73 96 04/12/18 11:49 04/12/18 11:49 04/12/18 11:49 04/12/18 11:49 04/12/18 11:49 Intake & Output 04/11/18 04/12/18 04/13/18 06:59 06:59 06:59 Intake Total 1000 3412 300 Output Total 2720 Balance 1000 692 300 Weight 93.3 kg 98.7 kg General appearance: PRESENT: morbidly obese Head exam: PRESENT: atraumatic, normocephalic Respiratory exam: PRESENT: clear to auscultation jina. ABSENT: rales, rhonchi, wheezes Cardiovascular exam: PRESENT: RRR. ABSENT: diastolic murmur, rubs, systolic murmur GI/Abdominal exam: PRESENT: hypoactive bowel sounds, soft, other. ABSENT: distended, guarding, mass, organolmegaly, rebound, tenderness Extremities exam: PRESENT: full ROM. ABSENT: calf tenderness, clubbing, pedal edema Neurological exam: PRESENT: alert, awake, oriented to person, oriented to place, oriented to time, oriented to situation, CN II-XII grossly intact. ABSENT: motor sensory deficit Skin exam: PRESENT: dry, intact, warm. ABSENT: cyanosis, rash Results Laboratory Results: 04/12/18 06:36 04/12/18 06:36 04/11/18 04/11/18 04/11/18 13:01 13:01 13:01 WBC 9.9 RBC 4.10 Hgb 13.5 Hct 39.7 MCV 97 MCH 33.0 MCHC 34.0 RDW 12.3 Plt Count 205 Seg Neutrophils % Lymphocytes % Monocytes % Eosinophils % Basophils % Absolute Neutrophils Absolute Lymphocytes Absolute Monocytes Absolute Eosinophils Absolute Basophils Sodium Potassium Chloride Carbon Dioxide Anion Gap BUN Creatinine Est GFR ( Amer) Est GFR (Non-Af Amer) Glucose Calcium Magnesium Amylase < 30 L TSH 0.39 L Free T4 2.31 H Free T3 pg/mL 4.74 04/12/18 04/12/18 06:36 06:36 WBC 6.4 RBC 3.27 L Hgb 10.9 L D Hct 31.5 L MCV 96 MCH 33.2 MCHC 34.5 RDW 12.4 Plt Count 164 Seg Neutrophils % 76.0 Lymphocytes % 18.3 Monocytes % 5.3 Eosinophils % 0.1 Basophils % 0.3 Absolute Neutrophils 4.9 Absolute Lymphocytes 1.2 Absolute Monocytes 0.3 Absolute Eosinophils 0.0 Absolute Basophils 0.0 Sodium 132.2 L Potassium 3.2 L Chloride 101 Carbon Dioxide 27 Anion Gap 4 L BUN 9 Creatinine 0.45 L Est GFR ( Amer) > 60 Est GFR (Non-Af Amer) > 60 Glucose 289 H Calcium 7.8 L Magnesium 1.7 Amylase TSH Free T4 Free T3 pg/mL Impressions: Abdomen Ultrasound 04/10/18 22:15 IMPRESSION: Unremarkable exam copyright 2010 [employer]- All Rights Reserved Abdomen/Pelvis CT 04/11/18 02:05 IMPRESSION: Abnormal, thick-walled fluid-filled loops of small bowel distally with surrounding inflammatory change and phlegmon. Possible small developing abscess also noted. Correlate with any history of inflammatory bowel disease. No obstruction at this time. Diffuse fatty infiltrative change to the liver. TECHNICAL DOCUMENTATION: Quality ID # 436: Final reports with documentation of one or more dose reduction techniques (e.g., Automated exposure control, adjustment of the mA and/or kV according to patient size, use of iterative reconstruction technique) copyright 2010 [employer]- All Rights Reserved Assessment & Plan - Diagnosis (1) Right lower quadrant abdominal pain Is this a current diagnosis for this admission?: Yes Plan: Improving. Day 2 status post diagnostic laparoscopy, abdominal washout and appendectomy. Change current regimen. Surgery managing. (2) Diabetes mellitus type 2 in obese Is this a current diagnosis for this admission?: Yes Plan: Newly diagnosed. A1c more than 14% on admission. Blood glucose on admission 315, fasting blood glucose 281. Diabetic education, Accu-Chek, sliding scale insulin, Lantus, pre-meal insulin. We will continue adjusting insulin dosage. Patient will be discharged on insulin and metformin to follow-up with her PCP for adjustment of her medication. Discharge planning consulted for helping with diabetic supplies. Patient was counseled on lifestyle and diet modification. (3) Hypocalcemia Is this a current diagnosis for this admission?: Yes Plan: Replaced. (4) Hypokalemia Is this a current diagnosis for this admission?: Yes Plan: Replaced. BMP tomorrow. (5) Hypomagnesemia Is this a current diagnosis for this admission?: Yes Plan: Replaced. Magnesium level tomorrow. (6) Obesity (BMI 30-39.9) Is this a current diagnosis for this admission?: Yes Plan: Counseled on diet and lifestyle modification TSH 0.39, free T4 2.31, free T3 4.74.
[2018-04-12] MEDS: MORPHINE SULFATE 10 MG/ML INJ IV PRN (14:28)
[2018-04-12 15:40] LABS: CHOLESTEROL 121.86 mg/dL (0-200); TRIGLYCERIDES 124 mg/dL (<150)
[2018-04-12 15:51] LABS: DIRECT LDL 54 mg/dL (<100)
[2018-04-12] MEDS ORDERED: INSULIN GLARGINE,HUM.REC.ANLOG 300 UNIT/3 ML INSULN.PEN SUBCUT SCH (22:00)
[2018-04-13] MEDS: MORPHINE SULFATE 10 MG/ML INJ IV PRN ×2 (02:51→22:51)
[2018-04-13 06:53] LABS: ABSOLUTE LYMPHOCYTES (AUTO) 1.7 10^3/uL (0.5-4.7); ABSOLUTE MONOCYTES (AUTO) 0.3 10^3/uL (0.1-1.4); ABSOLUTE NEUT (AUTO) 4.3 10^3/uL (1.7-8.2); BASOPHILS % (AUTO) 0.4 % (0-2); EOSINOPHILS % (AUTO) 0.6 % (0-6); HEMATOCRIT 30.7 % (36.0-47.0); HEMOGLOBIN 10.7 g/dL (12.0-15.5); LYMPHOCYTES % (AUTO) 26.6 % (13-45); MEAN CORPUSCULAR HEMOGLOBIN 33.4 pg (27.0-33.4); MEAN CORPUSCULAR HGB CONC 34.9 g/dL (32.0-36.0); MEAN CORPUSCULAR VOLUME 96 fl (80-97); MONOCYTES % (AUTO) 5.3 % (3-13); PLATELET COUNT 181 10^3/uL (150-450); RED BLOOD COUNT 3.21 10^6/uL (3.72-5.28); RED CELL DISTRIBUTION WIDTH 12.1 % (11.5-14.0); SEGMENTED NEUTROPHILS % (AUTO) 67.1 % (42-78); TOTAL CELLS COUNTED % (AUTO) 100 %; WHITE BLOOD COUNT 6.4 10^3/uL (4.0-10.5)
[2018-04-13] MEDS: HEPARIN SOD (PORCINE) 5,000 UNIT/ML 1 ML SYRINGE SUBCUT SCH ×3 (06:53→22:30)
[2018-04-13] MEDS: KETOROLAC TROMETHAMINE INJ/PF 30 MG/1 ML SDV IV SCH ×3 (06:54→17:21)
[2018-04-13] MEDS: CEFOXITIN SODIUM 2 GM in DEXTROSE 5%-WATER 100 ML IV SCH ×3 (06:54→22:30)
[2018-04-13] MEDS: DOXYCYCLINE HYCLATE 100 MG in DEXTROSE 5%-WATER 250 ML IV SCH ×2 (06:55→17:11)
[2018-04-13] MEDS: NORMAL SALINE 1000 ML 1,000 ML IV PRN ×2 (06:56→22:40)
[2018-04-13 07:25] LABS: ANION GAP 6 (5-19); BLOOD UREA NITROGEN 12 mg/dL (7-20); CALCIUM 7.8 mg/dL (8.4-10.2); CARBON DIOXIDE 27 mmol/L (22-30); CHLORIDE 102 mmol/L (98-107); GLUCOSE 241 mg/dL (75-110); POTASSIUM 3.3 mmol/L (3.6-5.0); SODIUM 134.8 mmol/L (137-145)
[2018-04-13] MEDS: OXYCODONE-ACETAMINOPHEN 5-325 MG TABLET PO PRN ×2 (08:14→20:28)
[2018-04-13] MEDS: INSULIN LISPRO 100 UNIT/ML 3 ML VIAL SUBCUT SCH ×4 (09:05→23:10)
[2018-04-13] MEDS: INSULIN LISPRO 100 UNIT/ML 3 ML VIAL SUBCUT PRN ×4 (09:05→22:53)
[2018-04-13] MEDS ORDERED: POTASSIUM CHLORIDE 20 MEQ/15 ML UDCUP PO ONE (11:00)
[2018-04-13] MEDS: PANTOPRAZOLE SODIUM 40 MG VIAL IV SCH ×2 (11:02→22:30)
[2018-04-13] MEDS: FAMOTIDINE INJ/PF 20 MG/2 ML SDV IV SCH ×2 (11:03→22:38)
--- NOTE | 2018-04-13 12:15 | PDOC PROGRESS REPORT ---
Subjective Progress Note for:: 04/13/18 Subjective:: EVIE OLSON is a 42 year old female obesity and untreated diabetes who presented to ED on 04/10/2018 complaining of gradually worsening right lower quadrant abdominal pain. She explained the pain as severe, constant, internal squeezing intense pressure localized in the right lower abdomen bounded medially at the midline, just above the pubic symphysis for the lower aspect and laterally extends to the mid clavicular line with its superior boundary at the level of the umbilicus. The pain is intensified by trying to eat or drink anything and is also significantly worse when she moves or bears weight on her right side. She has no pain or burning with voiding but the active voiding (pressure to express urine) causes increased discomfort in her abdomen at the site indicated previously. She denies nausea and vomiting. She had a normal bowel movement within 12 hours prior to the onset of her abdominal pain but has not had a bowel movement since that time. In the emergency room she was found to have right lower quadrant pain and a CT scan revealing a phlegmon and marked inflammatory changes without definitive abscess in the right lower quadrant. Th e appendix was judged to be normal on CT scan. She was admitted under surgical service and hospitalist was consulted for comanagement. 04/12/2018. Day 2 status post s/p diagnostic laparoscopy abdominal washout and appendectomy. Encounter patient is comfortably resting in bed in no apparent distress. Sitting with abdominal pain has improved post surgery, she has not had a bowel movement since admission however is passing gas, she is p.o. tolerant. She stating that she was told that she has diabetes however was never treated for it. She is denying any fever, shortness of breath, chills, chest pain, nausea, vomiting, diarrhea or any urinary symptoms. 04/13/2018. Day 3 status post diagnostic laparoscopy abdominal washout and appendectomy. Abdominal pain has improved. No bowel movements since surgery passes gas. Denies any fever, chills, nausea, vomiting, diarrhea urinary symptoms, shortness of breath or any chest pain. Reason For Visit: ABDOMINAL ABSCESS Physical Exam Vital Signs: Temp Pulse Resp BP Pulse Ox 98.1 F 84 18 121/64 99 04/13/18 12:00 04/13/18 12:00 04/13/18 12:00 04/13/18 12:04/13/18 12:00 Intake & Output 04/12/18 04/13/18 04/14/18 06:59 06:59 06:59 Intake Total 3412 2530 Output Total 2720 Balance 692 2530 Weight 98.7 kg 101.4 kg General appearance: PRESENT: morbidly obese Head exam: PRESENT: atraumatic, normocephalic Respiratory exam: PRESENT: clear to auscultation jina. ABSENT: rales, rhonchi, wheezes Cardiovascular exam: PRESENT: RRR. ABSENT: diastolic murmur, rubs, systolic murmur GI/Abdominal exam: PRESENT: hypoactive bowel sounds, normal bowel sounds, soft. ABSENT: distended, guarding, mass, organolmegaly, rebound, tenderness Neurological exam: PRESENT: alert, awake, oriented to person, oriented to place, oriented to time, oriented to situation, CN II-XII grossly intact. ABSENT: motor sensory deficit Results Laboratory Results: 04/13/18 06:25 04/13/18 06:25 04/12/18 04/13/18 04/13/18 06:39 06:25 06:25 WBC 6.4 RBC 3.21 L Hgb 10.7 L Hct 30.7 L MCV 96 MCH 33.4 MCHC 34.9 RDW 12.1 Plt Count 181 Seg Neutrophils % 67.1 Lymphocytes % 26.6 Monocytes % 5.3 Eosinophils % 0.6 Basophils % 0.4 Absolute Neutrophils 4.3 Absolute Lymphocytes 1.7 Absolute Monocytes 0.3 Absolute Eosinophils 0.0 Absolute Basophils 0.0 Sodium 134.8 L Potassium 3.3 L Chloride 102 Carbon Dioxide 27 Anion Gap 6 BUN 12 Creatinine 0.51 L Est GFR ( Amer) > 60 Est GFR (Non-Af Amer) > 60 Glucose 241 H Calcium 7.8 L Magnesium 1.9 Triglycerides 124 Cholesterol 121.86 LDL Cholesterol Direct 54 VLDL Cholesterol 25.0 HDL Cholesterol 39 L Impressions: Abdomen Ultrasound 04/10/18 22:15 IMPRESSION: Unremarkable exam copyright 2011 [employer]- All Rights Reserved Abdomen/Pelvis CT 04/11/18 02:05 IMPRESSION: Abnormal, thick-walled fluid-filled loops of small bowel distally with surrounding inflammatory change and phlegmon. Possible small developing abscess also noted. Correlate with any history of inflammatory bowel disease. No obstruction at this time. Diffuse fatty infiltrative change to the liver. TECHNICAL DOCUMENTATION: Quality ID # 436: Final reports with documentation of one or more dose reduction techniques (e.g., Automated exposure control, adjustment of the mA and/or kV according to patient size, use of iterative reconstruction technique) copyright 2011 [employer]- All Rights Reserved Assessment & Plan - Diagnosis (1) Right lower quadrant abdominal pain Is this a current diagnosis for this admission?: Yes Plan: Improving. Day 3 status post diagnostic laparoscopy, abdominal washout and appendectomy. Change current regimen. Surgery managing. (2) Diabetes mellitus type 2 in obese Is this a current diagnosis for this admission?: Yes Plan: Newly diagnosed. A1c more than 14% on admission. Blood glucose on admission 315, fasting blood glucose 241. Diabetic education, Accu-Chek, sliding scale insulin, Lantus, pre-meal insulin. We will continue adjusting insulin dosage. Patient will be discharged on insulin and metformin to follow-up with her PCP for adjustment of her medication. Discharge planning consulted for helping with diabetic supplies. Patient was counseled on lifestyle and diet modification. (3) Hypocalcemia Is this a current diagnosis for this admission?: Yes Plan: We will replace. CMP tomorrow (4) Hypokalemia Is this a current diagnosis for this admission?: Yes Plan: Replaced. BMP tomorrow. (5) Hypomagnesemia Is this a current diagnosis for this admission?: Yes Plan: Resolved (6) Obesity (BMI 30-39.9) Is this a current diagnosis for this admission?: Yes Plan: Counseled on diet and lifestyle modification TSH 0.39, free T4 2.31, free T3 4.74.
--- NOTE | 2018-04-13 12:31 | PDOC PROGRESS REPORT ---
Subjective Progress Note for:: 04/13/18 Reason For Visit: ABDOMINAL ABSCESS Physical Exam Vital Signs: Temp Pulse Resp BP Pulse Ox 98.1 F 84 18 121/64 99 04/13/18 12:00 04/13/18 12:00 04/13/18 12:00 04/13/18 12:00 04/13/18 12:00 Intake & Output 04/12/18 04/13/18 04/14/18 06:59 06:59 06:59 Intake Total 3412 2530 Output Total 2720 Balance 692 2530 Weight 98.7 kg 101.4 kg GI/Abdominal exam: PRESENT: soft - min tenderness passing flatus carmen reg diet Results Laboratory Results: 04/13/18 06:25 04/13/18 06:25 04/12/18 04/13/18 04/13/18 06:39 06:25 06:25 WBC 6.4 RBC 3.21 L Hgb 10.7 L Hct 30.7 L MCV 96 MCH 33.4 MCHC 34.9 RDW 12.1 Plt Count 181 Seg Neutrophils % 67.1 Lymphocytes % 26.6 Monocytes % 5.3 Eosinophils % 0.6 Basophils % 0.4 Absolute Neutrophils 4.3 Absolute Lymphocytes 1.7 Absolute Monocytes 0.3 Absolute Eosinophils 0.0 Absolute Basophils 0.0 Sodium 134.8 L Potassium 3.3 L Chloride 102 Carbon Dioxide 27 Anion Gap 6 BUN 12 Creatinine 0.51 L Est GFR ( Amer) > 60 Est GFR (Non-Af Amer) > 60 Glucose 241 H Calcium 7.8 L Magnesium 1.9 Triglycerides 124 Cholesterol 121.86 LDL Cholesterol Direct 54 VLDL Cholesterol 25.0 HDL Cholesterol 39 L Impressions: Abdomen Ultrasound 04/10/18 22:15 IMPRESSION: Unremarkable exam copyright 2011 [employer]- All Rights Reserved Abdomen/Pelvis CT 04/11/18 02:05 IMPRESSION: Abnormal, thick-walled fluid-filled loops of small bowel distally with surrounding inflammatory change and phlegmon. Possible small developing abscess also noted. Correlate with any history of inflammatory bowel disease. No obstruction at this time. Diffuse fatty infiltrative change to the liver. TECHNICAL DOCUMENTATION: Quality ID # 436: Final reports with documentation of one or more dose reduction techniques (e.g., Automated exposure control, adjustment of the mA and/or kV according to patient size, use of iterative reconstruction technique) copyright 2011 [employer]- All Rights Reserved Assessment & Plan - Plan Summary Plan Summary: appreciated medical input into diabetic care pt will be started on insulin and metformin for high hba1c now carmen diet ok to be discharged home on 10days of abx after diabetic teaching and arranging for f/u with medical physician
[2018-04-13] MEDS ORDERED: CALCIUM GLUCONATE 1000 MG/10 ML INJ IV ONE (13:15)
[2018-04-13] MEDS ORDERED: INSULIN LISPRO 100 UNIT/ML 3 ML VIAL SUBCUT ONE (15:00)
[2018-04-13] MEDS ORDERED: INSULIN GLARGINE,HUM.REC.ANLOG 300 UNIT/3 ML INSULN.PEN SUBCUT SCH (22:00)
[2018-04-14] MEDS: OXYCODONE-ACETAMINOPHEN 5-325 MG TABLET PO PRN (03:25)
[2018-04-14] MEDS: HEPARIN SOD (PORCINE) 5,000 UNIT/ML 1 ML SYRINGE SUBCUT SCH ×3 (05:46→22:00)
[2018-04-14] MEDS: CEFOXITIN SODIUM 2 GM in DEXTROSE 5%-WATER 100 ML IV SCH ×3 (05:46→22:00)
[2018-04-14 06:27] LABS: ABSOLUTE EOSINOPHILS # (AUTO) 0.1 10^3/uL (0.0-0.6); ABSOLUTE LYMPHOCYTES (AUTO) 1.2 10^3/uL (0.5-4.7); ABSOLUTE MONOCYTES (AUTO) 0.3 10^3/uL (0.1-1.4); ABSOLUTE NEUT (AUTO) 4.1 10^3/uL (1.7-8.2); BASOPHILS % (AUTO) 0.2 % (0-2); EOSINOPHILS % (AUTO) 0.9 % (0-6); HEMATOCRIT 29.5 % (36.0-47.0); HEMOGLOBIN 10.2 g/dL (12.0-15.5); LYMPHOCYTES % (AUTO) 20.8 % (13-45); MEAN CORPUSCULAR HEMOGLOBIN 33.2 pg (27.0-33.4); MEAN CORPUSCULAR HGB CONC 34.7 g/dL (32.0-36.0); MEAN CORPUSCULAR VOLUME 96 fl (80-97); MONOCYTES % (AUTO) 5.2 % (3-13); PLATELET COUNT 216 10^3/uL (150-450); RED BLOOD COUNT 3.08 10^6/uL (3.72-5.28); RED CELL DISTRIBUTION WIDTH 12.3 % (11.5-14.0); SEGMENTED NEUTROPHILS % (AUTO) 72.9 % (42-78); TOTAL CELLS COUNTED % (AUTO) 100 %; WHITE BLOOD COUNT 5.7 10^3/uL (4.0-10.5)
[2018-04-14] MEDS: DOXYCYCLINE HYCLATE 100 MG in DEXTROSE 5%-WATER 250 ML IV SCH ×2 (06:34→18:22)
[2018-04-14] MEDS: MORPHINE SULFATE 10 MG/ML INJ IV PRN ×2 (06:42→10:16)
[2018-04-14 06:43] LABS: ALANINE AMINOTRANSFERASE 18 U/L (9-52); ALBUMIN 2.8 g/dL (3.5-5.0); ALKALINE PHOSPHATASE 69 U/L (38-126); ANION GAP 7 (5-19); ASPARTATE AMINO TRANSFERASE 12 U/L (14-36); BILIRUBIN,DIRECT 0.3 mg/dL (0.0-0.4); BILIRUBIN,TOTAL 0.4 mg/dL (0.2-1.3); BLOOD UREA NITROGEN 12 mg/dL (7-20); CARBON DIOXIDE 25 mmol/L (22-30); CHLORIDE 107 mmol/L (98-107); GLUCOSE 182 mg/dL (75-110); SODIUM 138.6 mmol/L (137-145); TOTAL PROTEIN 5.3 g/dL (6.3-8.2)
[2018-04-14 06:54] LABS: POTASSIUM 3.7 mmol/L (3.6-5.0)
[2018-04-14] MEDS: INSULIN LISPRO 100 UNIT/ML 3 ML VIAL SUBCUT SCH ×3 (08:17→18:22)
--- NOTE | 2018-04-14 08:31 | PDOC PROGRESS REPORT ---
Subjective Progress Note for:: 04/14/18 Reason For Visit: ABDOMINAL ABSCESS Physical Exam Vital Signs: Temp Pulse Resp BP Pulse Ox 98.9 F 79 18 123/85 98 04/14/18 03:27 04/14/18 03:27 04/14/18 03:27 04/14/18 03:27 04/14/18 03:27 Intake & Output 04/13/18 04/14/18 04/15/18 06:59 06:59 06:59 Intake Total 2530 2100 Balance 2530 2100 Weight 101.4 kg 101.8 kg Respiratory exam: PRESENT: clear to auscultation jina, unlabored GI/Abdominal exam: PRESENT: soft - soft, non tender dressing dry Results Laboratory Results: 04/14/18 06:01 04/14/18 06:01 04/14/18 04/14/18 04/14/18 06:01 06:01 06:01 WBC 5.7 RBC 3.08 L Hgb 10.2 L Hct 29.5 L MCV 96 MCH 33.2 MCHC 34.7 RDW 12.3 Plt Count 216 Seg Neutrophils % 72.9 Lymphocytes % 20.8 Monocytes % 5.2 Eosinophils % 0.9 Basophils % 0.2 Absolute Neutrophils 4.1 Absolute Lymphocytes 1.2 Absolute Monocytes 0.3 Absolute Eosinophils 0.1 Absolute Basophils 0.0 Sodium 138.6 Potassium 3.7 Chloride 107 Carbon Dioxide 25 Anion Gap 7 BUN 12 Creatinine 0.45 L Est GFR ( Amer) > 60 Est GFR (Non-Af Amer) > 60 Glucose 182 H Calcium 8.0 L Magnesium 1.8 Total Bilirubin 0.4 AST 12 L ALT 18 Alkaline Phosphatase 69 Total Protein 5.3 L Albumin 2.8 L 04/11/18 08:25 Appendix Gram Stain - Final 04/11/18 08:25 Appendix Wound Culture - Final Peptostreptococcus Species Fusobacterium Species Prevotella Species Impressions: Abdomen Ultrasound 04/10/18 22:15 IMPRESSION: Unremarkable exam copyright 2011 [employer]- All Rights Reserved Abdomen/Pelvis CT 04/11/18 02:05 IMPRESSION: Abnormal, thick-walled fluid-filled loops of small bowel distally with surrounding inflammatory change and phlegmon. Possible small developing abscess also noted. Correlate with any history of inflammatory bowel disease. No obstruction at this time. Diffuse fatty infiltrative change to the liver. TECHNICAL DOCUMENTATION: Quality ID # 436: Final reports with documentation of one or more dose reduction techniques (e.g., Automated exposure control, adjustment of the mA and/or kV according to patient size, use of iterative reconstruction technique) copyright 2011 [employer]- All Rights Reserved Assessment & Plan - Diagnosis (1) Diabetes mellitus type 2 in obese Is this a current diagnosis for this admission?: Yes - Plan Summary Plan Summary: pt now carmen reg diet normal bowel function am glucose better controlled with sub q insulin pt will need diabetic teaching today and discharge planning for f/u currently she does not have a primary physician for diabetic care will cont doxicycline upon discharge for 10 days 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
[2018-04-14] MEDS: FAMOTIDINE INJ/PF 20 MG/2 ML SDV IV SCH ×2 (10:02→22:03)
[2018-04-14] MEDS: INSULIN LISPRO 100 UNIT/ML 3 ML VIAL SUBCUT PRN ×2 (10:06→22:06)
[2018-04-14] MEDS ORDERED: DEXTROSE 40% GEL 15 GM TUBE PO PRN ×4 (10:33→10:42)
[2018-04-14] MEDS ORDERED: DEXTROSE 50%-WATER 25 GM/50 ML DISP.SYRIN IV PRN ×4 (10:33→10:42)
[2018-04-14] MEDS ORDERED: GLUCAGON,HUMAN RECOMB 1 MG INJ IM PRN ×2 (10:33→10:42)
--- NOTE | 2018-04-14 10:41 | PDOC PROGRESS REPORT ---
Subjective Progress Note for:: 04/14/18 Subjective:: EVIE OLSON is a 42 year old female obesity and untreated diabetes who presented to ED on 04/10/2018 complaining of gradually worsening right lower quadrant abdominal pain. She explained the pain as severe, constant, internal squeezing intense pressure localized in the right lower abdomen bounded medially at the midline, just above the pubic symphysis for the lower aspect and laterally extends to the mid clavicular line with its superior boundary at the level of the umbilicus. The pain is intensified by trying to eat or drink anything and is also significantly worse when she moves or bears weight on her right side. She has no pain or burning with voiding but the active voiding (pressure to express urine) causes increased discomfort in her abdomen at the site indicated previously. She denies nausea and vomiting. She had a normal bowel movement within 12 hours prior to the onset of her abdominal pain but has not had a bowel movement since that time. In the emergency room she was found to have right lower quadrant pain and a CT scan revealing a phlegmon and marked inflammatory changes without definitive abscess in the right lower quadrant. Th e appendix was judged to be normal on CT scan. She was admitted under surgical service and hospitalist was consulted for comanagement. 04/12/2018. Day 2 status post s/p diagnostic laparoscopy abdominal washout and appendectomy. Encounter patient is comfortably resting in bed in no apparent distress. Sitting with abdominal pain has improved post surgery, she has not had a bowel movement since admission however is passing gas, she is p.o. tolerant. She stating that she was told that she has diabetes however was never treated for it. She is denying any fever, shortness of breath, chills, chest pain, nausea, vomiting, diarrhea or any urinary symptoms. 04/13/2018. Day 3 status post diagnostic laparoscopy abdominal washout and appendectomy. Abdominal pain has improved. No bowel movements since surgery passes gas. Denies any fever, chills, nausea, vomiting, diarrhea urinary symptoms, shortness of breath or any chest pain. 04/14/2018. Day 4 status post diagnostic laparoscopy abdominal washout and appendectomy. No acute events overnight. Abdominal pain improved. One bowel movement since yesterday. Vitals within normal limits, BC within normal limits, CMP within normal limits, fasting blood glucose 182. She is ambulatory, p.o. tolerant. Denies any fever, chest pain, chills, shortness of breath, nausea, vomiting, diarrhea or constipation. Reason For Visit: ABDOMINAL ABSCESS Physical Exam Vital Signs: Temp Pulse Resp BP Pulse Ox 98.8 F 86 18 125/83 99 04/14/18 07:23 04/14/18 07:23 04/14/18 07:23 04/14/18 07:23 04/14/18 07:23 Intake & Output 04/13/18 04/14/18 04/15/18 06:59 06:59 06:59 Intake Total 2530 2200 250 Balance 2530 2200 250 Weight 101.4 kg 101.8 kg General appearance: PRESENT: no acute distress, well-developed, well-nourished Head exam: PRESENT: atraumatic, normocephalic Respiratory exam: PRESENT: clear to auscultation jina. ABSENT: rales, rhonchi, wheezes Cardiovascular exam: PRESENT: RRR. ABSENT: diastolic murmur, rubs, systolic murmur GI/Abdominal exam: PRESENT: normal bowel sounds, soft. ABSENT: distended, guarding, mass, organolmegaly, rebound, tenderness Neurological exam: PRESENT: alert, awake, oriented to person, oriented to place, oriented to time, oriented to situation, CN II-XII grossly intact. ABSENT: motor sensory deficit Results Laboratory Results: 04/14/18 06:01 04/14/18 06:01 04/14/18 04/14/18 04/14/18 06:01 06:01 06:01 WBC 5.7 RBC 3.08 L Hgb 10.2 L Hct 29.5 L MCV 96 MCH 33.2 MCHC 34.7 RDW 12.3 Plt Count 216 Seg Neutrophils % 72.9 Lymphocytes % 20.8 Monocytes % 5.2 Eosinophils % 0.9 Basophils % 0.2 Absolute Neutrophils 4.1 Absolute Lymphocytes 1.2 Absolute Monocytes 0.3 Absolute Eosinophils 0.1 Absolute Basophils 0.0 Sodium 138.6 Potassium 3.7 Chloride 107 Carbon Dioxide 25 Anion Gap 7 BUN 12 Creatinine 0.45 L Est GFR ( Amer) > 60 Est GFR (Non-Af Amer) > 60 Glucose 182 H Calcium 8.0 L Magnesium 1.8 Total Bilirubin 0.4 AST 12 L ALT 18 Alkaline Phosphatase 69 Total Protein 5.3 L Albumin 2.8 L 04/11/18 08:25 Appendix Gram Stain - Final 04/11/18 08:25 Appendix Wound Culture - Final Peptostreptococcus Species Fusobacterium Species Prevotella Species Impressions: Abdomen Ultrasound 04/10/18 22:15 IMPRESSION: Unremarkable exam copyright 2010 [employer]- All Rights Reserved Abdomen/Pelvis CT 04/11/18 02:05 IMPRESSION: Abnormal, thick-walled fluid-filled loops of small bowel distally with surrounding inflammatory change and phlegmon. Possible small developing abscess also noted. Correlate with any history of inflammatory bowel disease. No obstruction at this time. Diffuse fatty infiltrative change to the liver. TECHNICAL DOCUMENTATION: Quality ID # 436: Final reports with documentation of one or more dose reduction techniques (e.g., Automated exposure control, adjustment of the mA and/or kV according to patient size, use of iterative reconstruction technique) copyright 2010 [employer]- All Rights Reserved Assessment & Plan - Diagnosis (1) Right lower quadrant abdominal pain Is this a current diagnosis for this admission?: Yes Plan: Improving. Day 4 status post diagnostic laparoscopy, abdominal washout and appendectomy. Change current regimen. Surgery managing. (2) Diabetes mellitus type 2 in obese Is this a current diagnosis for this admission?: Yes Plan: Newly diagnosed. Better controlled. A1c more than 14% on admission. Blood glucose on admission 315, fasting blood glucose 182. Diabetic education, Accu-Chek, sliding scale insulin, Lantus, pre-meal insulin. We will continue adjusting insulin dosage. Patient will be discharged on insulin and metformin to follow-up with her PCP for adjustment of her medication. Discharge planning consulted for helping with diabetic supplies. Patient was counseled on lifestyle and diet modification. (3) Hypocalcemia Is this a current diagnosis for this admission?: Yes Plan: Resolved. Corrected calcium 9.0. (4) Hypokalemia Is this a current diagnosis for this admission?: Yes Plan: Resolved. (5) Hypomagnesemia Is this a current diagnosis for this admission?: Yes Plan: Resolved (6) Obesity (BMI 30-39.9) Is this a current diagnosis for this admission?: Yes Plan: Counseled on diet and lifestyle modification TSH 0.39, free T4 2.31, free T3 4.74.
[2018-04-14 11:03] LABS: PATH REVIEW PATHOLOGIST REVIEWED
[2018-04-14] MEDS ORDERED: IBUPROFEN 800 MG TABLET ONE (13:25)
[2018-04-14] MEDS ORDERED: ONDANSETRON HCL INJ/PF 4 MG/2 ML SDV IV PRN (15:00)
[2018-04-14] MEDS: IBUPROFEN 800 MG TABLET PO PRN (20:18)
[2018-04-14] MEDS ORDERED: INSULIN GLARGINE,HUM.REC.ANLOG 300 UNIT/3 ML INSULN.PEN SUBCUT SCH ×2 (22:00)
[2018-04-15] MEDS: IBUPROFEN 800 MG TABLET PO PRN ×2 (02:47→13:03)
[2018-04-15] MEDS: CEFOXITIN SODIUM 2 GM in DEXTROSE 5%-WATER 100 ML IV SCH ×2 (06:00→14:23)
[2018-04-15] MEDS: HEPARIN SOD (PORCINE) 5,000 UNIT/ML 1 ML SYRINGE SUBCUT SCH ×2 (06:01→14:22)
[2018-04-15] MEDS: DOXYCYCLINE HYCLATE 100 MG in DEXTROSE 5%-WATER 250 ML IV SCH (06:53)
[2018-04-15 07:42] LABS: ANION GAP 5 (5-19); BLOOD UREA NITROGEN 12 mg/dL (7-20); CALCIUM 8.6 mg/dL (8.4-10.2); CARBON DIOXIDE 29 mmol/L (22-30); CHLORIDE 104 mmol/L (98-107); GLUCOSE 136 mg/dL (75-110); POTASSIUM 3.9 mmol/L (3.6-5.0); SODIUM 137.9 mmol/L (137-145)
[2018-04-15] MEDS: INSULIN LISPRO 100 UNIT/ML 3 ML VIAL SUBCUT SCH ×5 (08:51→17:54)
[2018-04-15] MEDS: FAMOTIDINE INJ/PF 20 MG/2 ML SDV IV SCH (09:49)
--- NOTE | 2018-04-15 10:49 | PDOC PROGRESS REPORT ---
Subjective Progress Note for:: 04/15/18 Subjective:: EVIE OLSON is a 42 year old female obesity and untreated diabetes who presented to ED on 04/10/2018 complaining of gradually worsening right lower quadrant abdominal pain. She explained the pain as severe, constant, internal squeezing intense pressure localized in the right lower abdomen bounded medially at the midline, just above the pubic symphysis for the lower aspect and laterally extends to the mid clavicular line with its superior boundary at the level of the umbilicus. The pain is intensified by trying to eat or drink anything and is also significantly worse when she moves or bears weight on her right side. She has no pain or burning with voiding but the active voiding (pressure to express urine) causes increased discomfort in her abdomen at the site indicated previously. She denies nausea and vomiting. She had a normal bowel movement within 12 hours prior to the onset of her abdominal pain but has not had a bowel movement since that time. In the emergency room she was found to have right lower quadrant pain and a CT scan revealing a phlegmon and marked inflammatory changes without definitive abscess in the right lower quadrant. Th e appendix was judged to be normal on CT scan. She was admitted under surgical service and hospitalist was consulted for comanagement. 04/12/2018. Day 2 status post s/p diagnostic laparoscopy abdominal washout and appendectomy. Encounter patient is comfortably resting in bed in no apparent distress. Sitting with abdominal pain has improved post surgery, she has not had a bowel movement since admission however is passing gas, she is p.o. tolerant. She stating that she was told that she has diabetes however was never treated for it. She is denying any fever, shortness of breath, chills, chest pain, nausea, vomiting, diarrhea or any urinary symptoms. 04/13/2018. Day 3 status post diagnostic laparoscopy abdominal washout and appendectomy. Abdominal pain has improved. No bowel movements since surgery passes gas. Denies any fever, chills, nausea, vomiting, diarrhea urinary symptoms, shortness of breath or any chest pain. 04/14/2018. Day 4 status post diagnostic laparoscopy abdominal washout and appendectomy. No acute events overnight. Abdominal pain improved. One bowel movement since yesterday. Vitals within normal limits, BC within normal limits, CMP within normal limits, fasting blood glucose 182. She is ambulatory, p.o. tolerant. Denies any fever, chest pain, chills, shortness of breath, nausea, vomiting, diarrhea or constipation. 04/15/2018. Day 5 status post diagnostic laparoscopy abdominal washout appendectomy. No acute events overnight. Abdominal pain has improved. Patient is p.o. tolerant having normal bowel movement. Blood sugar has been ranging between 101 an 150. Will sign off. And will need PCP follow-up for management and adjustment of her insulin dosage as needed. Patient's sugar has been well controlled for the last 24 hours but unfortunately patient cannot be sent home on Lantus and lispro due to financial reasons. Patient can be sent home on and metformin to follow-up with PCP for adjustment of her insulin dosage. Reason For Visit: ABDOMINAL ABSCESS Physical Exam Vital Signs: Temp Pulse Resp BP Pulse Ox 97.9 F 71 20 111/77 97 04/15/18 07:48 04/15/18 07:48 04/15/18 07:48 04/15/18 07:48 04/15/18 07:48 Intake & Output 04/14/18 04/15/18 04/16/18 06:59 06:59 06:59 Intake Total 2200 1999 100 Balance 2200 1999 100 Weight 101.8 kg 107.6 kg General appearance: PRESENT: no acute distress, well-developed, well-nourished Respiratory exam: PRESENT: clear to auscultation jina. ABSENT: rales, rhonchi, wheezes Cardiovascular exam: PRESENT: RRR. ABSENT: diastolic murmur, rubs, systolic murmur Neurological exam: PRESENT: alert, awake, oriented to person, oriented to place, oriented to time, oriented to situation, CN II-XII grossly intact. ABSENT: motor sensory deficit Results Laboratory Results: 04/14/18 06:01 04/15/18 06:31 04/15/18 06:31 Sodium 137.9 Potassium 3.9 Chloride 104 Carbon Dioxide 29 Anion Gap 5 BUN 12 Creatinine 0.49 L Est GFR ( Amer) > 60 Est GFR (Non-Af Amer) > 60 Glucose 136 H Calcium 8.6 Impressions: Abdomen Ultrasound 04/10/18 22:15 IMPRESSION: Unremarkable exam copyright 2011 [employer]- All Rights Reserved Abdomen/Pelvis CT 04/11/18 02:05 IMPRESSION: Abnormal, thick-walled fluid-filled loops of small bowel distally with surrounding inflammatory change and phlegmon. Possible small developing abscess also noted. Correlate with any history of inflammatory bowel disease. No obstruction at this time. Diffuse fatty infiltrative change to the liver. TECHNICAL DOCUMENTATION: Quality ID # 436: Final reports with documentation of one or more dose reduction techniques (e.g., Automated exposure control, adjustment of the mA and/or kV according to patient size, use of iterative reconstruction technique) copyright 2011 [employer]- All Rights Reserved Assessment & Plan - Diagnosis (1) Right lower quadrant abdominal pain Is this a current diagnosis for this admission?: Yes Plan: Improving. Day 4 status post diagnostic laparoscopy, abdominal washout and appendectomy. Change current regimen. Surgery managing. (2) Diabetes mellitus type 2 in obese Is this a current diagnosis for this admission?: Yes Plan: Newly diagnosed. Better controlled. A1c more than 14% on admission. Blood glucose on admission 315, fasting blood glucose 130s. Diabetic education, Accu-Chek, sliding scale insulin, Lantus, pre-meal insulin. We will continue adjusting insulin dosage. Patient will be discharged on insulin and metformin to follow-up with her PCP for adjustment of her medication. Discharge planning consulted for helping with diabetic supplies. Patient was counseled on lifestyle and diet modification. (3) Hypocalcemia Is this a current diagnosis for this admission?: Yes Plan: Resolved. Corrected calcium 9.0. (4) Hypokalemia Is this a current diagnosis for this admission?: Yes Plan: Resolved. (5) Hypomagnesemia Is this a current diagnosis for this admission?: Yes Plan: Resolved (6) Obesity (BMI 30-39.9) Is this a current diagnosis for this admission?: Yes Plan: Counseled on diet and lifestyle modification TSH 0.39, free T4 2.31, free T3 4.74.
[2018-04-15] MEDS: MORPHINE SULFATE 10 MG/ML INJ IV PRN (14:50)
--- NOTE | 2018-04-15 17:24 | Discharge Summary ---
Discharge Summary (SDC) - Discharge Final Diagnosis: pelvic abscess, new onset diabetes. Date of Surgery: 04/11/18 Condition: Fair Prescriptions: Insulin NPH Hum/Reg Insulin Hm [Humulin 70/30 Kwikpen] 35 unit SQ Q12 30 Days #5 insuln.pen Metformin HCl [Metformin HCl ER] 500 mg PO Q12 30 Days #60 tab.er.24h Referrals: [facility] [Provider Group] - 04/23/18 8:00 am (FOLLOW UP) Discharge Diet: Cardiac, Diabetic Discharge Activity: Activity As Tolerated Report the Following to Your Physician Immediately: Shortness of Breath, Nausea, Vomiting, Increase in Pain, Signs of Hyperglycemia, Signs of Hypoglycemia, Fever over 101 Degrees, Unusual Bleeding - see dictated summary.
[2018-04-15 17:46] VITALS: BP 134/82
--- NOTE | 2018-04-16 11:37 | DISCHARGE SUMMARY E ---
Discharge Summary NAME: EVIE OLSON : 1975 AGE: 42Y ADMITTED: 04/11/2018 DISCHARGED: 04/15/2018 REASON FOR HOSPITALIZATION/HOSPITAL COURSE: This is a 42-year-old female who presented to the emergency room on the at 10:00 at night complaining of new-onset abdominal pain on the right side. It persisted and had gotten worse throughout the day. It radiated to her right flank, and she reported nausea, vomiting, and diarrhea. She denied any other complaints. She was seen in the emergency room and a CT scan was obtained which showed an inflammatory mass in the right lower quadrant with a normal-appearing appendix. Surgery was consulted. She was taken to the operating room because of the inflammatory mass, and at the time of surgery a normal appendix was identified, but there was a significant amount of purulence in the pelvis and right lower quadrant with small bowel loops that were involved in an abscess. A [employer]IP[employer] consult was obtained by Dr. Lemon, who came into the operating room and viewed the findings. She noted that there was purulence coming from the right ovarian tube and that it was involved in this abscess, which was consistent with pelvic inflammatory disease. In retrospect, on questioning the patient she was complaining of vaginal discharge that had been increasing over the last few days to weeks. A diagnosis of PID was made in the operating room, and the patient was admitted to the floor postoperatively for IV antibiotics. During the course of the next day or two it was noted that she had high serum glucoses and for that reason a medical consult was obtained, who obtained a hemoglobin A1c which was noted to be in the 14 range. She was given a diagnosis of new-onset diabetes, and the medical team evaluated her and started her on metformin and insulin. The patient did not have a primary physician in the community and did not have insurance and, therefore, social service and discharge planning consults were made to assist this patient, and those plans were made for her to follow up with the community clinic, and she was given prescriptions for insulin and metformin as well as antibiotics to treat the pelvic inflammatory disease. She continued to improve to the point where she is now up and around walking and tolerating a regular diet and having normal bowel function. Her plans are for discharge with b.i.d. NPH insulin as well as metformin and doxycycline 100 mg p.o. b.i.d. for 7 days. She will follow up with the [facility] in 7 to 10 days after discharge for a wound check, and she will follow up with the free clinic here in [place] for management of her diabetes. She again has been given instructions on her diabetic management as well as prescriptions for a glucometer and other insulin supplies. Discharge is to home. DICTATING PHYSICIAN: SHIRLEY RUIZ M.D. [id number] PHY#: [id number] ID: [id number] JOB#: [id number] ACCT: [id number] cc:Elsie ERNANDEZ M.D. PAUL WEILAND, M.D. >
--- NOTE | 2018-05-06 14:57 | DISCHARGE SUMMARY E ---
Discharge Summary NAME: EVIE OLSON : 1975 AGE: 42Y ADMITTED: 04/11/2018 DISCHARGED: 04/15/2018 ADDENDUM: FINAL DIAGNOSIS: ENDOMETRIOMA STATUS POST WOUND DEHISCENCE. DICTATING PHYSICIAN: SHIRLEY RUIZ M.D. [id number] PHY#: [id number] ID: [id number] JOB#: [id number] ACCT: [id number] cc:FRANCES CLARK M.D., GARY M.D. WEILAND, PAUL M.D. >
--- NOTE | 2018-05-07 16:48 | Physician Advisory Note ---
Physician Advisor ProgressNote .: Pursuant to the plan for On [facility], I have reviewed the medical record for this patient. Physician Advisor Statement: Please clarify in documentation: 1. Was PID acute? (or chronic, or ...?) - What do you suspect as the infecting organism(s) causing the PID? (Coders aren't allowed to "assume" that organisms on a cx are infectious cause vs contaminant or ....) 2. Please address the path findings: would you say A "appx was removed and was normal; the periappendicitis found was not significant", - or - B. "Periappendicitis was present/significant" 3. Addendum to DCSummary states a final dx of "endometrioma s/p wound dehiscence" - was this an error, supposed to be on a different pt chart? (Or can you give further details on this finding and associated op report/course ...?) Thanks! CK Example of DCS format desired [facility]: Date adm, date of d/c Final dx.s: 1. PID, [acute, or chronic] 2. abscess of 3. ____ adhesions of ____ (if significant) 4. DM type __, new dx 5. obesity, BMI of ___ ... Procedures done/findings: D/c meds: 1. Doxy 100mg po bid 2. metformin __mg q__ 3. NPH insulin __ units SubQ q___ ... F/u: 1. [facility] in __ days for ___ 2. Free clinic - __ days, for ____ Hosp Course: Give narrative that "paints the picture" of how sick pt was, why they needed to be in hospital as long as they did, your concerns, and what was done for pt, like the excellent narrative you have already documented in prior DCS in this case.
--- NOTE | 2018-05-08 16:18 | DISCHARGE SUMMARY E ---
Discharge Summary NAME: EVIE OLSON : 1975 AGE: 42Y ADMITTED: 04/11/2018 DISCHARGED: 04/15/2018 ADDENDUM: FINAL DIAGNOSES: 1. Acute pelvic inflammatory disease. 2. Morbid obesity, BMI 42. 3. Periappendicitis. DICTATING PHYSICIAN: SHIRLEY RUIZ M.D. [id number] PHY#: [id number] ID: [id number] JOB#: [id number] ACCT: [id number] cc:FRANCES CLARK M.D. Elsie DIEHL M.D. >
== END 2018-04-15 18:45 | disposition home or self-care (01) | DRG 749 ==
LOC: ER 20:32 → EH 04-11 04:57 → 2S 04-11 12:59 → 2N 04-11 23:11
PROVIDERS: ADMIT Emergency Medicine; ATTEND Emergency Medicine
PROC: 0DN84ZZ Release Small Intestine, Percutaneous Endoscopic Approach (ICD-10-PCS; 2018-04-11)
PROC: 3E1M38Z Irrigation of Peritoneal Cavity using Irrigating Substance, Percutaneous Approach (ICD-10-PCS; 2018-04-11)
PROC: 0DBU4ZX Excision of Omentum, Percutaneous Endoscopic Approach, Diagnostic (ICD-10-PCS; 2018-04-11)
PROC: 0DTJ4ZZ Resection of Appendix, Percutaneous Endoscopic Approach (ICD-10-PCS; principal; 2018-04-11 07:00)
PROC: 3E02340 Introduction of Influenza Vaccine into Muscle, Percutaneous Approach (ICD-10-PCS; 2018-04-15)
DX: N73.0 Acute parametritis and pelvic cellulitis (principal); K65.1 Peritoneal abscess; Z68.41 Body mass index [BMI] 40.0-44.9, adult; K37 Unspecified appendicitis; N73.6 Female pelvic peritoneal adhesions (postinfective); K66.0 Peritoneal adhesions (postprocedural) (postinfection); F17.200 Nicotine dependence, unspecified, uncomplicated; E66.9 Obesity, unspecified; E83.51 Hypocalcemia; E11.9 Type 2 diabetes mellitus without complications; E87.6 Hypokalemia; E83.42 Hypomagnesemia; B95.4 Other streptococcus as the cause of diseases classified elsewhere; B96.89 Other specified bacterial agents as the cause of diseases classified elsewhere; Z68.39 Body mass index [BMI] 39.0-39.9, adult; Z79.4 Long term (current) use of insulin; Z23 Encounter for immunization; Z59.7 Insufficient social insurance and welfare support; Z83.3 Family history of diabetes mellitus; Z82.49 Family history of ischemic heart disease and other diseases of the circulatory system
CPT/HCPCS: 36415; 74177; 76705; 80048; 80053; 80061; 81001; 81025; 82150; 82962; 83036; 83690; 83735; 840; 84439; 84443; 84481; 85025; 85027; 87040; 87070; 87075; 87077; 87205; 87491; 87591; 88305; 90471; 90686; 94799; 96361; 96365; 96374; 96375; 99285; G0008; J0131; J0330; J0610; J0694; J1100; J1170; J1644; J1815; J1885; J1956; J2250; J2270; J2405; J2543; J2704; J3010; J3475; J3480; J3490; J7030; J7060; S0028; S0119; S0164

== ENCOUNTER → 2018-04-23 | Outpatient (CLI) | payer SELFPAY ==
--- NOTE | 2018-04-23 13:58 | RADIOLOGY REPORT (SQ) ---
EXAM DESCRIPTION: VENOUS BILATERAL LOWER COMPLETED DATE/TIME: 04/23/2018 11:46 am REASON FOR STUDY: BLE PAIN M79.605 PAIN IN LEFT LEG R22.43 LOCALIZED SWELLING, MASS AND LUMP, LOWE R LIMB, BILATE COMPARISON: None. TECHNIQUE: Dynamic and static de león scale and color images acquired of both lower extremity venous sy stems. Selected spectral images acquired with additional compression and augmentation maneuvers. Imag es stored on PACS. LIMITATIONS: None. FINDINGS: RIGHT LEG COMMON FEMORAL AND FEMORAL: Normal phasicity, compression and augmentation. No visualized echogenic m aterial on de león scale. No defects on color images. POPLITEAL: Normal compression and augmentation. No visualized echogenic material on de león scale. No de fects on color images. CALF VESSELS: Normal compression and augmentation. No visualized echogenic material on de león scale. No defects on color image. GSV AND SSV: Normal compression. No visualized echogenic material on de león scale. No defects on color images. ANY DEEP VENOUS INSUFFICIENCY: Not evaluated. ANY EVIDENCE OF POPLITEAL CYST: No. OTHER: No other significant finding. LEFT LEG COMMON FEMORAL AND FEMORAL: Normal phasicity, compression and augmentation. No visualized echogenic m aterial on de león scale. No defects on color images. POPLITEAL: Normal compression and augmentation. No visualized echogenic material on de león scale. No de fects on color images. CALF VESSELS: Normal compression and augmentation. No visualized echogenic material on de león scale. No defects on color images. GSV AND SSV: Normal compression. No visualized echogenic material on de león scale. No defects on color images. ANY DEEP VENOUS INSUFFICIENCY: Not evaluated. ANY EVIDENCE POPLITEAL CYST: No. OTHER: No other significant finding. IMPRESSION: NO EVIDENCE DVT OR SVT IN EITHER LEG. TECHNICAL DOCUMENTATION: JOB ID: [id number] [employer]- All Rights Reserved Reading location - IP/workstation name: [email or web address]
== END ==
LOC: SP 09:55
PROVIDERS: ATTEND Surgery
DX: M79.605 Pain in left leg (principal); R22.43 Localized swelling, mass and lump, lower limb, bilateral
CPT/HCPCS: 93970

== ENCOUNTER 2018-09-07 04:57 | Emergency (ER) | payer MEDICAID ==
[2018-09-07] MEDS ORDERED: NORMAL SALINE 1000 ML 1,000 ML IV ONE (05:02)
[2018-09-07] MEDS ORDERED: HYDROMORPHONE HCL INJ/PF 2 MG/ML AMPULE IV ONE ×2 (05:07→05:38)
[2018-09-07] MEDS ORDERED: HYDROMORPHONE HCL INJ/PF 2 MG/ML AMPULE ONE (05:13)
[2018-09-07 05:15] LABS: ABSOLUTE BASOPHILS # (AUTO) 0.1 10^3/uL (0.0-0.2); ABSOLUTE LYMPHOCYTES (AUTO) 3.1 10^3/uL (0.5-4.7); ABSOLUTE MONOCYTES (AUTO) 0.4 10^3/uL (0.1-1.4); ABSOLUTE NEUT (AUTO) 3.7 10^3/uL (1.7-8.2); BASOPHILS % (AUTO) 0.8 % (0-2); EOSINOPHILS % (AUTO) 0.6 % (0-6); HEMATOCRIT 38.7 % (36.0-47.0); HEMOGLOBIN 13.2 g/dL (12.0-15.5); LYMPHOCYTES % (AUTO) 42.4 % (13-45); MEAN CORPUSCULAR HEMOGLOBIN 31.5 pg (27.0-33.4); MEAN CORPUSCULAR HGB CONC 34.1 g/dL (32.0-36.0); MEAN CORPUSCULAR VOLUME 93 fl (80-97); MONOCYTES % (AUTO) 5.7 % (3-13); PLATELET COUNT 255 10^3/uL (150-450); RED BLOOD COUNT 4.19 10^6/uL (3.72-5.28); RED CELL DISTRIBUTION WIDTH 13.8 % (11.5-14.0); SEGMENTED NEUTROPHILS % (AUTO) 50.5 % (42-78); TOTAL CELLS COUNTED % (AUTO) 100 %; WHITE BLOOD COUNT 7.4 10^3/uL (4.0-10.5)
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
[2018-09-07 05:32] LABS: ALANINE AMINOTRANSFERASE 22 U/L (9-52); ALBUMIN 4.4 g/dL (3.5-5.0); ALKALINE PHOSPHATASE 78 U/L (38-126); ANION GAP 13 (5-19); ASPARTATE AMINO TRANSFERASE 17 U/L (14-36); BILIRUBIN,DIRECT 0.3 mg/dL (0.0-0.4); BILIRUBIN,TOTAL 0.5 mg/dL (0.2-1.3); BLOOD UREA NITROGEN 15 mg/dL (7-20); CALCIUM 9.5 mg/dL (8.4-10.2); CARBON DIOXIDE 23 mmol/L (22-30); CHLORIDE 102 mmol/L (98-107); GLUCOSE 339 mg/dL (75-110); POTASSIUM 4.1 mmol/L (3.6-5.0); SODIUM 138.3 mmol/L (137-145); TOTAL PROTEIN 7.4 g/dL (6.3-8.2)
[2018-09-07] MEDS: HYDROMORPHONE HCL INJ/PF 2 MG/ML AMPULE IV PRN ×2 (06:26→07:58)
[2018-09-07 07:14] VITALS: BP 155/97
--- NOTE | 2018-09-07 08:20 | ER Document Report ---
Doctor's Note Notes: 09/07/18 08:20 EMS transport team is here. Patient has no obvious facial swelling, posterior pharyngeal swelling, wheezing or stridor. Good oxygen saturation. I believe the airway is safe for transfer.
== END 2018-09-07 08:20 | disposition short-term general hospital (02) ==
LOC: ER 04:57
DX: T22.231A Burn of second degree of right upper arm, initial encounter (principal); T22.212A Burn of second degree of left forearm, initial encounter; T25.221A Burn of second degree of right foot, initial encounter; T25.222A Burn of second degree of left foot, initial encounter; T20.10XA Burn of first degree of head, face, and neck, unspecified site, initial encounter; X00.0XXA Exposure to flames in uncontrolled fire in building or structure, initial encounter; Y92.009 Unspecified place in unspecified non-institutional (private) residence as the place of occurrence of the external cause
CPT/HCPCS: 96376; 99285; 96374; 36415; 82375; 85025; 80053; J1170; J7030

== ENCOUNTER 2018-10-29 21:39 | Emergency (ER) | payer MEDICAID ==
[2018-10-29] MEDS ORDERED: KETOROLAC TROMETHAMINE INJ/PF 30 MG/1 ML SDV IV ONE (23:04)
[2018-10-30 01:19] LABS: ABSOLUTE BASOPHILS # (AUTO) 0.1 10^3/uL (0.0-0.2); ABSOLUTE LYMPHOCYTES (AUTO) 2.4 10^3/uL (0.5-4.7); ABSOLUTE MONOCYTES (AUTO) 0.4 10^3/uL (0.1-1.4); ABSOLUTE NEUT (AUTO) 9.7 10^3/uL (1.7-8.2); BASOPHILS % (AUTO) 0.4 % (0-2); EOSINOPHILS % (AUTO) 0.3 % (0-6); HEMATOCRIT 50.8 % (36.0-47.0); LYMPHOCYTES % (AUTO) 19.3 % (13-45); MEAN CORPUSCULAR HEMOGLOBIN 31.2 pg (27.0-33.4); MEAN CORPUSCULAR HGB CONC 33.4 g/dL (32.0-36.0); MEAN CORPUSCULAR VOLUME 93 fl (80-97); MONOCYTES % (AUTO) 3.5 % (3-13); PLATELET COUNT 236 10^3/uL (150-450); RED BLOOD COUNT 5.44 10^6/uL (3.72-5.28); RED CELL DISTRIBUTION WIDTH 13.7 % (11.5-14.0); SEGMENTED NEUTROPHILS % (AUTO) 76.5 % (42-78); TOTAL CELLS COUNTED % (AUTO) 100 %; WHITE BLOOD COUNT 12.6 10^3/uL (4.0-10.5)
[2018-10-30 01:27] LABS: ANION GAP 13 (5-19); BLOOD UREA NITROGEN 11 mg/dL (7-20); CALCIUM 9.5 mg/dL (8.4-10.2); CARBON DIOXIDE 30 mmol/L (22-30); CHLORIDE 89 mmol/L (98-107); GLUCOSE 348 mg/dL (75-110); POTASSIUM 3.8 mmol/L (3.6-5.0)
[2018-10-30] MEDS ORDERED: KETOROLAC TROMETHAMINE INJ/PF 30 MG/1 ML SDV IV ONE (05:22)
--- NOTE | 2018-10-30 05:30 | ER Document Report ---
ED GI/ - General TRAVEL OUTSIDE OF THE [place] IN LAST 30 DAYS: No <MARIELA FAITH - Last Filed: 10/30/18 08:26> <LIZZ MULTANI - Last Filed: 10/30/18 19:42> - General Chief Complaint: Abdominal Pain Stated Complaint: ABDOMINAL PAIN Time Seen by Provider: 10/30/18 05:02 Primary Care Provider: ALIX DIAZ MD [ACTIVE STAFF] - Follow up as needed FRANCES CLARK MD [Primary Care Provider] - Follow up as needed FRANCES HOYT MD [ACTIVE STAFF] - Follow up tomorrow Notes: Very pleasant 43-year-old female with history of abdominal surgery in March 2018 presents to the emergency department with chief complaint of abdominal pain. Patient states that the pain has been going on for a few days and got acutely worse. She was concerned because she was having intermittent stabbing pain and intermittent rectal stabbing pain along with right lower quadrant pain that is constant and back pain that is pre-existing made worse by this abdominal pain. Patient states she tried taking some milk of magnesia thinking it was constipation but had no resolution. Patient states that she is passing small amounts of diarrhea and is passing gas but has not had a solid bowel movement. Patient denies any nausea or vomiting, denies any fevers, denies any acute shortness of breath or chest pain, denies any urinary symptoms. (MARIELA FAITH) - Related Data Allergies/Adverse Reactions: No Known Allergies Allergy (Verified 10/29/18 21:41) Past Medical History - Social History Smoking Status: Never Smoker Family History: DM, Hypertension Patient has suicidal ideation: No Patient has homicidal ideation: No - Past Medical History Cardiac Medical History: Denies: Hx Coronary Artery Disease, Hx DVT, Hx Hypercholesterolemia, Hx Hypertension, Hx Pulmonary Embolism Pulmonary Medical History: Denies: Hx Asthma, Hx COPD, Hx Respiratory Failure Neurological Medical History: Denies: Hx Seizures Endocrine Medical History: Reports: Hx Diabetes Mellitus Type 2. Denies: Hx Diabetes Mellitus Type 1, Hx Hyperthyroidism, Hx Hypothyroidism Renal/ Medical History: Denies: Hx Peritoneal Dialysis GI Medical History: Denies: Hx Cirrhosis, Hx Gastroesophageal Reflux Disease, Hx Hepatitis Musculoskeletal Medical History: Denies Hx Arthritis, Denies Hx Fibromyalgia, Denies Hx Gout Skin Medical History: Denies Hx Eczema, Denies Hx Psoriasis Infectious Medical History: Denies: Hx Hepatitis Past Surgical History: Reports: Hx Section <MARIELA FAITH - Last Filed: 10/30/18 08:26> Review of Systems - Review of Systems Constitutional: See HPI EENT: No symptoms reported Cardiovascular: See HPI Respiratory: See HPI Gastrointestinal: See HPI Genitourinary: See HPI Female Genitourinary: No symptoms reported Musculoskeletal: No symptoms reported Skin: No symptoms reported Hematologic/Lymphatic: No symptoms reported Neurological/Psychological: No symptoms reported <MARIELA FAITH - Last Filed: 10/30/18 08:26> Physical Exam <MARIELA FAITH - Last Filed: 10/30/18 08:26> - Vital signs Vitals: Temp Pulse Resp BP Pulse Ox 99.0 F 114 H 18 132/87 H 95 10/29/18 21:50 10/29/18 21:50 10/29/18 21:50 10/29/18 21:50 10/29/18 21:50 - Notes Notes: PHYSICAL EXAMINATION: Reviewed vital signs and charting by RN GENERAL: Alert, interacts well. No acute distress. HEAD: Normocephalic, atraumatic. EYES: Pupils equal and round. Extraocular movements intact. ENT: Oral mucosa moist, tongue midline. NECK: Full range of motion. Trachea midline. LUNGS: Clear to auscultation bilaterally, no wheezes, rales, or rhonchi. No respiratory distress. HEART: Regular rate and rhythm. No murmur ABDOMEN: soft, right lower quadrant and suprapubic tenderness to palpation. No distention. Bowel sounds present EXTREMITIES: Moves all 4 extremities spontaneously. No edema, No cyanosis. PSYCH: Normal affect, normal mood. SKIN: Warm, dry, normal turgor. No rashes or lesions noted. (MARIELA FAITH) Course - Laboratory Result Diagrams: 10/29/18 23:02 10/29/18 23:02 <MARIELA FAITH - Last Filed: 10/30/18 08:26> - Laboratory Result Diagrams: 10/29/18 23:02 10/29/18 23:02 <LIZZ MULTANI - Last Filed: 10/30/18 19:42> - Re-evaluation Re-evalutation: 10/30/18 05:29 Overall well-appearing and nontoxic. Vital signs reviewed. Plan is to obtain a CT abdomen/pelvis with IV contrast to ensure she does not have an SBO. Patient with a very mild leukocytosis, hemoglobin very concentrated at 17, and no other significant lab derangements. Patient was not able to provide urine but I added a serum hCG. 10/30/18 07:50 Serum hCG was negative so we proceeded with a CT abdomen/pelvis with IV contrast. Findings were concerning for possible rectal colitis versus developing abscess versus PID based on radiologist report. I briefly discussed with supervising physician, Dr. Pierce, who recommended that we do proceed with the transvaginal ultrasound with Doppler. He then recommends that we take the information from the CT and the transvaginal ultrasound along with the patient's previous operative report from March 2018 and consult the surgeon for recommendation. 10/30/18 08:26 A warm bedside handoff was conducted with Lizz Clarke NP. She except the care of the patient. Plan is in place. (MARIELA FAITH) Bedside disposition given at 8:30 AM, awaiting ultrasound results, patient in no distress, vitals stable patient afebrile. Ultrasound transvaginal shows uterine enlargement, no fibroids identified. No documented masses or any other pathology. No fluid collection related to the question of abscess, her IUD is visualized. Pelvic exam performed, waiting on culture results for chlamydia gonorrhea and wet mount. Will be consulting with [employer]. Patient getting IV fluids, patient reports pain 7 out of 10, sharp and stabbing, will give patient 3 mg morphine IVP. Consulted with Dr. Briggs, surgeon animation director, stated that patient is not a surgical candidate does not feel that this is a colorectal issue or a rectal colitis with abscess, suspect this is related to PID. Patient has a positive for BV. consulted with Dr. Frances Hoyt, obgyn animation director, at 1230, consulted on pertinent laboratory diagnostic and clinical findings, asked specialist what he would like this provider to do, he said treat her for PID for appropriate treatments and he would see her outpatient in his office tomorrow. Patient given 1 g Rocephin, started on doxycycline 100 mg twice daily for 14 days and Flagyl 500 mg twice daily for 14 days. Patient verbalized understanding of this plan of care. Patient's been negative for GC. After performing a Medical Screening Examination, I estimate there is LOW risk for ACUTE APPENDICITIS, BOWEL OBSTRUCTION, ACUTE CHOLECYSTITIS, PERFORATED DIVERTICULITIS, INCARCERATED HERNIA, PANCREATITIS, PERFORATED ULCER, ECTOPIC , or TUBO-OVARIAN ABSCESS, thus I consider the discharge disposition reasonable. Also, there is no evidence or peritonitis, sepsis, or toxicity. I have reevaluated this patient multiple times and no significant life threatening changes are noted. The patient and I have discussed the diagnosis and risks, and we agree with discharging home with close follow-up with the understanding that symptoms and presentations can change. We also discussed returning to the Emergency Department immediately if new or worsening symptoms occur. We have discussed the symptoms which are most concerning (e.g., bloody stool, fever, changing or worsening pain, vomiting) that necessitate immediate return. (LIZZ MULTANI) - Vital Signs Vital signs: Temp Pulse Resp BP Pulse Ox 98.8 F 90 16 133/80 H 100 10/30/18 06:01 10/30/18 06:01 10/30/18 13:01 10/30/18 13:01 10/30/18 13:01 - Laboratory Laboratory results interpreted by me: 10/29/18 10/29/18 10/30/18 23:02 23:02 07:00 WBC 12.6 H RBC 5.44 H Hgb 17.0 H Hct 50.8 H Absolute Neutrophils 9.7 H Sodium 131.9 L Chloride 89 L Glucose 348 H POC Glucose Urine Protein >=500 H Urine Glucose (UA) 150 H 10/30/18 12:58 WBC RBC Hgb Hct Absolute Neutrophils Sodium Chloride Glucose POC Glucose 239 H Urine Protein Urine Glucose (UA) Discharge <MARIELA FAITH - Last Filed: 10/30/18 08:26> <LIZZ MULTANI - Last Filed: 10/30/18 19:42> - Discharge Clinical Impression: Pelvic abscess in female, PID (acute pelvic inflammatory disease), Bacterial vaginal infection, Diabetes mellitus type 2 in obese Condition: Stable Disposition: HOME, SELF-CARE Instructions: Abdominal Pain ([facility]), Diabetes ([facility]), Control of Diabetes During Illness ([facility]), Doxycycline ([facility]), Pelvic Inflammatory Disease ([facility]), Rocephin ([facility]), Vaginosis, Bacterial ([facility]) Additional Instructions: Please follow-up with [employer] tomorrow for follow-up for PID. Take Flagyl, doxycycline as directed, do not drink well take this medication will cause nausea and vomiting. You are given a dose of 1 g Rocephin while in the ER. Alternate between Tylenol and meloxicam for pain control, increase oral hydration. Please monitor your blood sugars, follow a low carbohydrate diet. Prescriptions: RX: Doxycycline Hyclate 100 mg PO BID #28 capsule RX: Meloxicam [Mobic] 7.5 mg PO DAILY #7 tablet Metronidazole [Flagyl 500 mg Tablet] 500 mg PO Q12H #28 tablet Forms: Return to Work Referrals: FRANCES CLARK MD [Primary Care Provider] - Follow up as needed FRANCES HOYT MD [ACTIVE STAFF] - Follow up tomorrow ALIX DIAZ MD [ACTIVE STAFF] - Follow up as needed
--- NOTE | 2018-10-30 06:46 | RADIOLOGY REPORT (SQ) ---
EXAM DESCRIPTION: CT ABDOMEN PELVIS WITH IV CONTRAST COMPLETED DATE/TME: 10/30/2018 05:22 CLINICAL HISTORY: 43 years Female, RLQ/suprapubic abd pain hx surgery Mar 2018 Comparison:Apr 11 2018 Technique: IV contrast. Coronal and sagittal reformat. This exam was performed according to our departmental dose-optimization program, which includes automated exposure control, adjustment of the mA and/or kV according to patient size and/or use of iterative reconstruction technique. [facility]: Dose Right [facility]: CareDose [facility]: Dose Right [facility]: Teradose 4D [facility]: RippleFunction LIMITATIONS: None Findings: Moderate fat inflammation at the midpelvis includes an indeterminate 2.9 cm cystic component between the rectum and cervix. Moderate diffuse rectal bowel wall thickening. Differential diagnosis includes pelvic inflammatory disease and/or rectal colitis with or without developing abscess. Recommend pelvic ultrasound and/or contrast CT of the abdomen and pelvis using IV and oral/rectal contrast. Appendectomy. IUD is within the endometrial canal 2.0 cm from the fundus indicating mild inferior displacement. Likely benign renal cyst(s), not definitively characterized. No ascites. No bowel obstruction. No gross evidence of gallbladder inflammation, hepatobiliary obstruction, or portal vein defect. No hydronephrosis or hydroureter. No renal/ureteral stone. No evidence of abdominal aortic aneurysm. Inferior thorax, liver, gallbladder, pancreas, spleen, adrenals, renal system, gastrointestinal tract, pelvic organs, lymphatics, vasculature, and musculoskeleton appear otherwise unremarkable. IMPRESSION: 1. Moderate fat inflammation at the midpelvis includes an indeterminate 2.9 cm cystic component between the rectum and cervix. Moderate diffuse rectal bowel wall thickening. Differential diagnosis includes pelvic inflammatory disease and/or rectal colitis with or without developing abscess. Consider pelvic ultrasound, contrast CT of the abdomen and pelvis using IV and oral/rectal contrast, and/or Surgical consultation.. 2. IUD is within the endometrial canal 2.0 cm from the fundus indicating mild inferior displacement.
[2018-10-30 07:28] LABS: APPEARANCE,URINE SLIGHTLY-CLOUDY; BILIRUBIN,URINE NEGATIVE (NEGATIVE); COLOR,URINE YELLOW; GLUCOSE, URINE 150 mg/dL (NEGATIVE); KETONES,URINE NEGATIVE (NEGATIVE); LEUKOCYTE ESTERASE,URINE NEGATIVE (NEGATIVE); NITRITE,URINE NEGATIVE (NEGATIVE); PROTEIN,URINE >=500 mg/dL (NEGATIVE); URINE SPECIFIC GRAVITY > 1.060; UROBILINOGEN,URINE NEGATIVE mg/dL (<2.0)
--- NOTE | 2018-10-30 09:29 | RADIOLOGY REPORT (SQ) ---
EXAM DESCRIPTION: U/S NON OB PEL TV W/DOPPLER COMPLETED DATE/TIME: 10/30/2018 8:59 am REASON FOR STUDY: concern abscess vs PID COMPARISON: None. TECHNIQUE: Dynamic and static grayscale images acquired of the pelvis via transabdominal and transva ginal approach and recorded on PACS. Additional selected color Doppler and spectral images recorded. LIMITATIONS: Body habitus and overlying bowel gas FINDINGS: UTERUS: Enlarged. No fibroids. ENDOMETRIAL STRIPE: IUD in lower uterine segment CERVIX: No nabothian cysts. RIGHT OVARY AND DOPPLER: Normal size. No worrisome masses. Normal arterial vascular flow without evid ence for torsion. LEFT OVARY AND DOPPLER: Not visualized. Limited secondary to body habitus and overlying bowel gas. FREE FLUID: None noted. OTHER: No other significant finding. MEASUREMENTS: UTERUS: 13.6 x 6.1 x 7.9 cm ENDOMETRIAL STRIPE: 3.5 mm RIGHT OVARY: 3.7 x 3.1 x 3.7 cm LEFT OVARY: Not visualized IMPRESSION: Uterine enlargement. No fibroids identified. No adnexal masses or other pathology. No fluid collection related to the question of abscess. IUD visualized. TECHNICAL DOCUMENTATION: JOB ID: [id number] [employer]- All Rights Reserved Rev-08/02 Reading location - IP/workstation name: [email or web address]
[2018-10-30] MEDS ORDERED: NORMAL SALINE 1000 ML 1,000 ML IV ONE (10:09)
[2018-10-30] MEDS ORDERED: MORPHINE SULFATE 10 MG/ML INJ IV ONE (10:55)
[2018-10-30 11:22] LABS: BACTERIA (WET MOUNT) 3+ BACTERIA SEEN; EPITHELIALS (WET MOUNT) 3+ EPITHELIALS SEEN; RBCS (WET MOUNT) FEW RBCS SEEN; T.VAGINALIS (WET MOUNT) NO TRICHOMONAS SEEN; WBCS (WET MOUNT) 3+ WBCS SEEN; YEAST (WET MOUNT) NO YEAST SEEN
[2018-10-30] MEDS ORDERED: METRONIDAZOLE 500 MG TABLET PO ONE (12:15)
[2018-10-30] MEDS ORDERED: CEFTRIAXONE INJ 1000 MG VIAL IV ONE (12:18)
--- NOTE | 2018-10-30 12:28 | PDOC CONSULTATION ---
Consultation Consult Date: 10/30/18 Provider Consulted: YASMINE ELLIS Consult reason:: Pelvic pain History of Present Illness Admission Date/PCP: FRANCES CLARK MD Patient complains of: Right pelvic pain History of Present Illness: EVIE OLSON is a 43 year old female who underwent an incidental appendectomy and was noted with evidence of pelvic inflammatory disease during laparoscopy at that time in March of this year. Patient was treated with antibiotics and she has had subsequent improvement although she has had never complete resolution of right sided pelvic pain. She notes that the pain has been present for the past several months and worsened in the past week. One episode of subjective fever yesterday. She has had some bowel irregularity with some loose bowel movements in the past few days. No nausea or vomiting. No blood per rectum. She notes some abnormal vaginal discharge several weeks ago. Past Medical History Cardiac Medical History: Denies: Coronary Artery Disease, DVT, Hyperlipidema, Hypertension, Pulmonary Embolism Pulmonary Medical History: Denies: Asthma, Chronic Obstructive Pulmonary Disease (COPD), Respiratory Failure Neurological Medical History: Denies: Seizures Endocrine Medical History: Reports: Diabetes Mellitus Type 2 Denies: Diabetes Mellitus Type 1, Hyperthyroidism, Hypothyroidism GI Medical History: Denies: Cirrhosis, Gastroesophageal Reflux Disease, Hepatitis Musculoskeltal Medical History: Denies: Arthritis, Fibromyalgia, Gout Skin Medical History: Denies: Eczema, Psoriasis Hematology: Denies: Anemia, Bleeding Tendencies Past Surgical History Past Surgical History: Reports: Section, Other - Laparoscopic appendectomy with lysis of adhesions and pelvic washout. Social History Smoking Status: Current Every Day Smoker Frequency of Alcohol Use: Social Hx Recreational Drug Use: No Drugs: Marijuana Hx Prescription Drug Abuse: No Family History Family History: DM, Hypertension Parental Family History Reviewed: Yes - Diabetes and hypertension Children Family History Reviewed: Yes Sibling(s) Family History Reviewed.: Yes Medication/Allergy Home Medications: Doxycycline Hyclate 1 cap PO BID 04/15/18 Insulin NPH Hum/Reg Insulin Hm [Humulin 70/30 Kwikpen] 35 unit SQ Q12 30 Days #5 insuln.pen 04/15/18 Metformin HCl [Metformin HCl ER] 500 mg PO Q12 30 Days #60 tab.er.24h 04/15/18 Allergies/Adverse Reactions: No Known Allergies Allergy (Verified 10/29/18 21:41) Review of Systems All systems: reviewed and no additional remarkable complaints except as stated Constitutional: PRESENT: fever(s) - Subjective fever yesterday. No chills. Gastrointestinal: PRESENT: as per HPI Genitourinary: PRESENT: as per HPI Physical Exam Vital Signs: Temp Pulse Resp BP Pulse Ox 98.8 F 90 18 139/87 H 96 10/30/18 06:01 10/30/18 06:01 10/30/18 06:01 10/30/18 12:17 10/30/18 12:17 Intake & Output 10/29/18 10/30/18 10/31/18 06:59 06:59 06:59 Intake Total 1000 Balance 1000 Weight 97.9 kg General appearance: PRESENT: no acute distress, cooperative Eye exam: PRESENT: conjunctiva pink Respiratory exam: PRESENT: clear to auscultation jina Cardiovascular exam: PRESENT: RRR GI/Abdominal exam: PRESENT: other - Soft, nondistended, tenderness to palpation across her very lower abdomen especially on the right side with no peritoneal signs Rectal exam: PRESENT: other - Normal sphincter tone with no visible perianal abnormalities and no focal tenderness nor fluctuance on digital rectal exam. Extremities exam: PRESENT: other - No swelling and no tenderness Neurological exam: PRESENT: alert, awake Psychiatric exam: PRESENT: appropriate affect Skin exam: PRESENT: warm Results Laboratory Results: 10/29/18 23:02 10/29/18 23:02 10/29/18 10/29/18 10/29/18 23:02 23:02 23:02 WBC 12.6 H RBC 5.44 H Hgb 17.0 H Hct 50.8 H MCV 93 MCH 31.2 MCHC 33.4 RDW 13.7 Plt Count 236 Seg Neutrophils % 76.5 Lymphocytes % 19.3 Monocytes % 3.5 Eosinophils % 0.3 Basophils % 0.4 Absolute Neutrophils 9.7 H Absolute Lymphocytes 2.4 Absolute Monocytes 0.4 Absolute Eosinophils 0.0 Absolute Basophils 0.1 Sodium 131.9 L Potassium 3.8 Chloride 89 L Carbon Dioxide 30 Anion Gap 13 BUN 11 Creatinine 0.57 Est GFR ( Amer) > 60 Est GFR (Non-Af Amer) > 60 Glucose 348 H Calcium 9.5 Lipase Serum HCG, Qual NEGATIVE Urine Color Urine Appearance Urine pH Ur Specific [place] Urine Protein Urine Glucose (UA) Urine Ketones Urine Blood Urine Nitrite Ur Leukocyte Esterase Urine WBC (Auto) Urine RBC (Auto) 10/29/18 10/30/18 23:02 07:00 WBC RBC Hgb Hct MCV MCH MCHC RDW Plt Count Seg Neutrophils % Lymphocytes % Monocytes % Eosinophils % Basophils % Absolute Neutrophils Absolute Lymphocytes Absolute Monocytes Absolute Eosinophils Absolute Basophils Sodium Potassium Chloride Carbon Dioxide Anion Gap BUN Creatinine Est GFR ( Amer) Est GFR (Non-Af Amer) Glucose Calcium Lipase 60.6 Serum HCG, Qual Urine Color YELLOW Urine Appearance SLIGHTLY-CLOUDY Urine pH 5.0 Ur Specific [place] > 1.060 Urine Protein >=500 H Urine Glucose (UA) 150 H Urine Ketones NEGATIVE Urine Blood NEGATIVE Urine Nitrite NEGATIVE Ur Leukocyte Esterase NEGATIVE Urine WBC (Auto) 4 Urine RBC (Auto) 4 Impressions: Abdomen/Pelvis CT 10/30/18 05:22 IMPRESSION: 1. Moderate fat inflammation at the midpelvis includes an indeterminate 2.9 cm cystic component between the rectum and cervix. Moderate diffuse rectal bowel wall thickening. Differential diagnosis includes pelvic inflammatory disease and/or rectal colitis with or without developing abscess. Consider pelvic ultrasound, contrast CT of the abdomen and pelvis using IV and oral/rectal contrast, and/or Surgical consultation.. 2. IUD is within the endometrial canal 2.0 cm from the fundus indicating mild inferior displacement. Transvaginal US 10/30/18 07:03 IMPRESSION: Uterine enlargement. No fibroids identified. No adnexal masses or other pathology. No fluid collection related to the question of abscess. IUD visualized. Assessment & Plan - Diagnosis (1) Pelvic abscess in female Is this a current diagnosis for this admission?: Yes Plan: With her clinical history of's PID that was noted during her last laparoscopy in March, the fluid collection seen in her pelvis most likely related with the PID. I do not think it is a primary rectal process. Recommend gynecology consultation.
[2018-10-30 12:48] LABS: CHLAM PCR NOT DETECTED (NOT DETECT)
[2018-10-30 13:08] VITALS: BP 133/80
== END 2018-10-30 13:49 | disposition home or self-care (01) ==
LOC: ER 21:39
DX: N73.0 Acute parametritis and pelvic cellulitis (principal); B96.89 Other specified bacterial agents as the cause of diseases classified elsewhere; E11.9 Type 2 diabetes mellitus without complications; E66.9 Obesity, unspecified; R10.31 Right lower quadrant pain; F17.200 Nicotine dependence, unspecified, uncomplicated
CPT/HCPCS: 36415; 87210; 82962; 83690; 84703; 85025; 80048; 81001; 87491; 87591; 76830; 93976; 74177; J1885 ×2; J2270; J0696; J3490; J7030; 96361; 96374; 96375; 99284

== ENCOUNTER 2019-05-09 16:43 | Emergency (ER) | payer MEDICAID ==
[2019-05-09] MEDS ORDERED: PREDNISONE 20 MG TABLET PO ONE (17:15)
[2019-05-09] MEDS ORDERED: FAMOTIDINE 20 MG TABLET PO ONE (17:15)
[2019-05-09] MEDS ORDERED: DIPHENHYDRAMINE HCL 25 MG CAPSULE PO ONE (17:15)
--- NOTE | 2019-05-09 17:18 | ER Document Report ---
ED Medical Screen (RME) - General Chief Complaint: Facial Swelling Stated Complaint: FACIAL/EYE SWELLING, PAIN Time Seen by Provider: 05/09/19 17:09 Primary Care Provider: FRANCES CLARK MD [Primary Care Provider] - Follow up as needed Mode of Arrival: Ambulatory Information source: Patient Notes: 43-year-old female patient presents emergency department chief complaint of possible allergic reaction. Patient has what appears to be some type of insect bite or abscess at the top of her forehead, she states that this was the first sign of the allergic reaction. Patient reports both of her eyes are now nearly swollen shut. She denies any visual changes or pain in her eye. Patient has taken Aleve for her symptoms but has not taken anything else. I have greeted and performed a rapid initial assessment of this patient. A comprehensive ED assessment and evaluation of the patient, analysis of test results and completion of the medical decision making process will be conducted by additional ED providers. I have specifically instructed the patient or family members with the patient to immediately return to any nursing staff should anything change in the patient's condition or with their chief complaint. TRAVEL OUTSIDE OF THE [place] IN LAST 30 DAYS: No - Related Data Allergies/Adverse Reactions: No Known Allergies Allergy (Verified 10/29/18 21:41) Past Medical History - Past Medical History Cardiac Medical History: Denies: Hx Coronary Artery Disease, Hx DVT, Hx Hypercholesterolemia, Hx Hypertension, Hx Pulmonary Embolism Pulmonary Medical History: Denies: Hx Asthma, Hx COPD, Hx Respiratory Failure Neurological Medical History: Denies: Hx Seizures Endocrine Medical History: Reports: Hx Diabetes Mellitus Type 2. Denies: Hx Diabetes Mellitus Type 1, Hx Hyperthyroidism, Hx Hypothyroidism Renal/ Medical History: Denies: Hx Peritoneal Dialysis GI Medical History: Denies: Hx Cirrhosis, Hx Gastroesophageal Reflux Disease, Hx Hepatitis Musculoskeltal Medical History: Denies Hx Arthritis, Denies Hx Fibromyalgia, Denies Hx Gout Skin Medical History: Denies Hx Eczema, Denies Hx Psoriasis Infectious Medical History: Denies: Hx Hepatitis Past Surgical History: Reports: Hx Section, Other - Laparoscopic appendectomy with lysis of adhesions and pelvic washout. Physical Exam - Vital signs Vitals: Temp Pulse Resp BP Pulse Ox 98.0 F 102 H 20 156/95 H 99 05/09/19 16:47 05/09/19 16:47 05/09/19 16:47 05/09/19 16:47 05/09/19 16:47 Course - Vital Signs Vital signs: Temp Pulse Resp BP Pulse Ox 98.0 F 102 H 20 156/95 H 99 05/09/19 16:47 05/09/19 16:47 05/09/19 16:47 05/09/19 16:47 05/09/19 16:47 Doctor's Discharge - Discharge Referrals: FRANCES CLARK MD [Primary Care Provider] - Follow up as needed
[2019-05-09] MEDS ORDERED: CLINDAMYCIN 900 MG/D5W RTU 900 MG/50 ML RTUPB IV ONE (22:06)
[2019-05-09] MEDS ORDERED: CEFTRIAXONE 1 GM/D5W RTU 1 GM/50 ML RTUPB IV ONE (22:07)
[2019-05-09 23:00] LABS: ABSOLUTE LYMPHOCYTES (AUTO) 0.6 10^3/uL (0.5-4.7); ABSOLUTE MONOCYTES (AUTO) 0.1 10^3/uL (0.1-1.4); BASOPHILS % (AUTO) 0.2 % (0-2); HEMATOCRIT 44.2 % (36.0-47.0); HEMOGLOBIN 15.2 g/dL (12.0-15.5); LYMPHOCYTES % (AUTO) 6.3 % (13-45); MEAN CORPUSCULAR HEMOGLOBIN 33.2 pg (27.0-33.4); MEAN CORPUSCULAR HGB CONC 34.3 g/dL (32.0-36.0); MEAN CORPUSCULAR VOLUME 97 fl (80-97); MONOCYTES % (AUTO) 1.1 % (3-13); PLATELET COUNT 263 10^3/uL (150-450); RED BLOOD COUNT 4.57 10^6/uL (3.72-5.28); RED CELL DISTRIBUTION WIDTH 12.7 % (11.5-14.0); SEGMENTED NEUTROPHILS % (AUTO) 92.4 % (42-78); TOTAL CELLS COUNTED % (AUTO) 100 %; WHITE BLOOD COUNT 9.7 10^3/uL (4.0-10.5)
[2019-05-09 23:25] LABS: ALBUMIN 4.5 g/dL (3.5-5.0); ALKALINE PHOSPHATASE 134 U/L (38-126); ANION GAP 13 (5-19); ASPARTATE AMINO TRANSFERASE 26 U/L (14-36); BILIRUBIN,DIRECT 0.4 mg/dL (0.0-0.4); BILIRUBIN,TOTAL 0.8 mg/dL (0.2-1.3); BLOOD UREA NITROGEN 8 mg/dL (7-20); CALCIUM 9.6 mg/dL (8.4-10.2); CARBON DIOXIDE 26 mmol/L (22-30); CHLORIDE 97 mmol/L (98-107); GLUCOSE 306 mg/dL (75-110); POTASSIUM 4.5 mmol/L (3.6-5.0); TOTAL PROTEIN 7.9 g/dL (6.3-8.2)
[2019-05-09] MEDS ORDERED: LIDOCAINE 1% INJ-PF (10 MG/ML) 30 ML SDV INJ ONE (23:35)
[2019-05-10] MEDS ORDERED: ACETAMINOPHEN 325 MG TABLET PO ONE (02:47)
--- NOTE | 2019-05-10 03:20 | ER Document Report ---
Entered by GERRY DICKENS SCRIBE 05/09/192019 Acting as scribe for:SAPNA PALAFOX MD ED General - General Chief Complaint: Allergic Reaction Stated Complaint: FACIAL/EYE SWELLING, PAIN Time Seen by Provider: 05/09/19 17:09 Primary Care Provider: FRANCES CLARK MD [Primary Care Provider] - Follow up as needed Mode of Arrival: Ambulatory Information source: Patient Notes: This 43 year old female patient presents to the ED today with complaints of an abscess at the top of her forehead that began x5-6 days ago. Patient reports that her forehead and both of her eyes started swelling today. Patient denies itchiness, eye pain, injury or insect bite. Patient also reports leg pain, but states that it may be related to her diabetes. Patient denies past medical history of HTN, HLD, CVA, seizures, thyroid issues, cardiac problems, or pu lmonary problems. TRAVEL OUTSIDE OF THE [place] IN LAST 30 DAYS: No - Related Data Allergies/Adverse Reactions: No Known Allergies Allergy (Verified 10/29/18 21:41) Home Medications: Metformin Past Medical History - General Information source: Patient - Social History Smoking Status: Current Every Day Smoker Cigarette use (# per day): Yes Chew tobacco use (# tins/day): No Smoking Education Provided: No Frequency of alcohol use: Occasional Drug Abuse: None Lives with: Family Family History: Reviewed & Not Pertinent, DM, Hypertension Patient has suicidal ideation: No Patient has homicidal ideation: No Endocrine Medical History: Reports: Hx Diabetes Mellitus Type 2 Past Surgical History: Reports: Hx Section, Other - Laparoscopic appendectomy with lysis of adhesions and pelvic washout. Review of Systems - Review of Systems Constitutional: No symptoms reported EENT: See HPI, Other - Eye swelling Cardiovascular: No symptoms reported Respiratory: No symptoms reported Gastrointestinal: No symptoms reported Genitourinary: No symptoms reported Female Genitourinary: No symptoms reported Musculoskeletal: See HPI, Other - Leg pain Skin: See HPI, Other - Abscess in the middle of forehead Hematologic/Lymphatic: No symptoms reported Neurological/Psychological: No symptoms reported -: Yes All other systems reviewed and negative Physical Exam - Vital signs Vitals: Temp Pulse Resp BP Pulse Ox 98.0 F 102 H 20 156/95 H 99 05/09/19 16:47 05/09/19 16:47 05/09/19 16:47 05/09/19 16:47 05/09/19 16:47 - General General appearance: Alert In distress: None - HEENT Head: Normocephalic, Atraumatic Eyes: Other - Bilateral eyelid swelling Pupils: PERRL - Respiratory Respiratory status: No respiratory distress Chest status: Nontender Breath sounds: Normal Chest palpation: Normal - Cardiovascular Rhythm: Regular Heart sounds: Normal auscultation Murmur: No - Abdominal Inspection: Normal Distension: No distension Bowel sounds: Normal Tenderness: Nontender Organomegaly: No organomegaly - Back Back: Normal, Nontender - Extremities General upper extremity: Normal inspection General lower extremity: Normal inspection - Neurological Neuro grossly intact: Yes - Psychological Associated symptoms: Normal affect, Normal mood - Skin Skin Temperature: Warm Skin Moisture: Dry Skin Color: Normal Skin irregularity: Abscess - 3 cm by 2 cm wide skin abscess located near the middle of the forehead at the scalp Course - Re-evaluation Re-evalutation: 05/10/19 03:05 Patient facial swelling is much improved at this time. After IV antibiotics of Rocephin and clindamycin. The soft tissue swelling was incised and drained see procedure note - Vital Signs Vital signs: Temp Pulse Resp BP Pulse Ox 98.7 F 87 20 133/86 H 98 05/09/19 19:36 05/09/19 19:36 05/09/19 19:36 05/09/19 19:36 05/09/19 19:36 - Laboratory Result Diagrams: 05/09/19 22:47 05/09/19 22:47 Laboratory results interpreted by me: 05/09/19 05/09/19 05/09/19 17:15 19:31 22:47 Lymph % (Auto) 6.3 L [place] % (Auto) 1.1 L Absolute Neuts (auto) 9.0 H Seg Neutrophils % 92.4 H Sodium Chloride Creatinine Glucose POC Glucose 374 H 288 H Alkaline Phosphatase 05/09/19 22:47 Lymph % (Auto) [place] % (Auto) Absolute Neuts (auto) Seg Neutrophils % Sodium 136.1 L Chloride 97 L Creatinine 0.36 L Glucose 306 H POC Glucose Alkaline Phosphatase 134 H 05/10/19 03:04 Patient has an abscess in the mid forehead at the at the scalp skin junction. Patient has a normal white blood cell count without showing any signs of toxic granulations at this time. She has diabetes and shows a blood sugar 306. Elevated blood sugar in the face of infection is not uncommon. Procedures - Incision and Drainage Upper Face Time completed: 02:30 Type: Simple Anesthetic type: 1% Lidocaine mL's of anesthetic: 3 I&D procedure: Betadine prep applied, Sterile dressing applied Incision Method: Incision made by scalpel Amount/type of drainage: Purulent drainage about 3 mils Notes: 05/10/19 03:07 A linear horizontal incision was made over the crown rump of the 3 x 2 cm swelling right at the mid forehead superior region at the scalp line. Area was anesthetized with 1% lidocaine iodoform gauze cleansing sterile drapes and using an 11 blade was able to make a a 2 cm horizontal linear incision. Expressed serosanguineous fluid in addition to the pus drainage that occurred. Culture wound was done of the purulent discharge. Patient will be discharged home on antibiotics Adult Head Front/Back picture: 1 - 3 x 5 x 2 cm mounded swelling right at the midline of the skin and scalp intersection Discharge - Discharge Clinical Impression: Diabetes mellitus type 2 in obese, Skin abscess, Hyperglycemia due to type 2 diabetes mellitus Disposition: HOME, SELF-CARE Instructions: Abscess ([facility]), Post Incision and Drainage, Trimethoprim-Sulfa ([facility]) Additional Instructions: Hyperglycemia (High Blood Sugar) You have an abnormally high blood sugar. Not all high blood sugar requires long-term treatment. High blood sugar can be due to medications, , or the stress of illness. (These cases are "borderline diabetes.") If the doctor feels your high blood sugar might resolve with time, you may not require treatment now. You will be scheduled for further evaluation. It's very important that you follow through, to see if the blood sugar returns to normal levels. Uncontrolled high blood sugar leads to early heart disease, strokes, nerve damage, eye damage, and kidney damage. Call the physician if there is faintness, excess sleepiness, or very rapid breathing.Abscess You have an abscess (boil). This a pus-forming infection, usually due to staph. Some boils may be left to drain on their own, but most require lancing. From the time the tender lump first appears, it may be three or four days before the abscess is ready to marcus. Local heat and rest help at this stage of treatment. An antibiotic may prevent spread of the infection. Once the abscess is opened, packing may be placed into it. This is done so pus is not sealed inside by premature closure of the cavity. The packing will be removed at your follow-up visit or you may be advised to remove it yourself at home. Sometimes this packing must be replaced a few times during healing. The wound will heal with surprisingly little scar. Depending on the size and location of an abscess, healing can take one to four weeks. You may shower and wash the area around the incision site two or three times a day. Antibiotics may be prescribed, but are usually not necessary after an abscess has been drained. If you develop fever, chilling, worsening pain, or increasing swelling in the area, call the doctor or return immediately. Prescriptions: Sulfamethoxazole/Trimethoprim [Bactrim Ds Tablet] 1 tab PO BID 10 Days #20 tablet Clindamycin HCl 300 mg PO TID #30 capsule Metformin HCl [Glucophage 500 mg Tablet] 500 mg PO BID #60 tablet Ibuprofen [Motrin 800 mg Tablet] 800 mg PO Q8H PRN #30 tab PRN Reason: pain Referrals: FRANCES CLARK MD [Primary Care Provider] - Follow up as needed I personally performed the services described in the documentation, reviewed and edited the documentation which was dictated to the scribe in my presence, and it accurately records my words and actions.
[2019-05-10 03:44] VITALS: BP 144/93
== END 2019-05-10 03:44 | disposition home or self-care (01) ==
LOC: ER 16:43
PROC: 0H91XZZ Drainage of Face Skin, External Approach (ICD-10-PCS; principal; 2019-05-09)
DX: E11.65 Type 2 diabetes mellitus with hyperglycemia (principal); E66.9 Obesity, unspecified; L02.01 Cutaneous abscess of face; R22.0 Localized swelling, mass and lump, head; R51 Headache; H57.89 Other specified disorders of eye and adnexa; F17.210 Nicotine dependence, cigarettes, uncomplicated
CPT/HCPCS: 99283; 36415; 87040; 87070; 87205; 82962; 85025; 87077; 80053; 10060; J3490 ×5; J7512; J0696; 87186

== ENCOUNTER 2020-02-08 22:45 | Emergency (ER) | payer MEDICAID ==
--- NOTE | 2020-02-09 00:47 | ER Document Report ---
ED General - General Chief Complaint: Shortness Of Breath Stated Complaint: NAUSEA,WEAKNESS,SHORTNESS OF BREATH Time Seen by Provider: 02/09/20 00:33 Primary Care Provider: FRANCES CLARK MD [Primary Care Provider] - Follow up as needed TRAVEL OUTSIDE OF THE [place] IN LAST 30 DAYS: No - HPI Notes: 44-year-old female presents with multiple complaints. Patient states that she has generally not been feeling well. She has been having chills, no fever. She had 3 episodes of diarrhea on Saturday, has not occurred since. She has had nausea and an episode of vomiting today. She has had upper abdominal pain, located on both sides, feels like a pressure sensation. She is also having upper central chest pain again described as a pressure. She has had headache, dizziness. She has not been eating or drinking well. She additionally has not been checking her sugars because the battery of her glucometer is . Also states that she has not really been taking her insulin as prescribed. She has no known Covid exposures. - Related Data Allergies/Adverse Reactions: No Known Allergies Allergy (Verified 10/29/18 21:41) Home Medications: ibuprofen, Metformin, Insulin Past Medical History - General Information source: Patient - Social History Smoking Status: Current Every Day Smoker Family History: Reviewed & Not Pertinent, DM, Hypertension - Past Medical History Cardiac Medical History: Denies: Hx Coronary Artery Disease, Hx DVT, Hx Hypercholesterolemia, Hx Hypertension, Hx Pulmonary Embolism Pulmonary Medical History: Denies: Hx Asthma, Hx COPD, Hx Respiratory Failure Neurological Medical History: Denies: Hx Seizures Endocrine Medical History: Reports: Hx Diabetes Mellitus Type 2. Denies: Hx Diabetes Mellitus Type 1, Hx Hyperthyroidism, Hx Hypothyroidism Renal/ Medical History: Denies: Hx Peritoneal Dialysis GI Medical History: Denies: Hx Cirrhosis, Hx Gastroesophageal Reflux Disease, Hx Hepatitis Musculoskeletal Medical History: Denies Hx Arthritis, Denies Hx Fibromyalgia, Denies Hx Gout Skin Medical History: Denies Hx Eczema, Denies Hx Psoriasis Infectious Medical History: Denies: Hx Hepatitis Past Surgical History: Reports: Hx Appendectomy, Hx Section, Other - Laparoscopic appendectomy with lysis of adhesions and pelvic washout. Review of Systems - Review of Systems Constitutional: Chills EENT: denies: Throat pain Cardiovascular: Chest pain Respiratory: Short of breath Gastrointestinal: See HPI Genitourinary: denies: Dysuria Female Genitourinary: No symptoms reported Musculoskeletal: Muscle pain Skin: No symptoms reported Hematologic/Lymphatic: No symptoms reported Neurological/Psychological: See HPI Physical Exam - Vital signs Vitals: Temp Pulse Resp BP Pulse Ox 98.9 F 107 H 16 128/74 H 99 02/08/20 23:38 02/08/20 23:38 02/08/20 23:38 02/08/20 23:38 02/08/20 23:38 - General General appearance: Alert Notes: Purposely shivering during exam - HEENT Head: Normocephalic, Atraumatic Eyes: No: Scleral icterus Pupils: PERRL Neck: Supple - Respiratory Chest status: Nontender Breath sounds: Normal - Cardiovascular Rhythm: Regular Heart sounds: Normal auscultation - Abdominal Inspection: Obese Distension: No distension Bowel sounds: Normal Tenderness: Nontender - Extremities General upper extremity: Normal ROM General lower extremity: Normal ROM - Neurological Neuro grossly intact: Yes Cognition: Normal Orientation: AAOx4 Notes: Seen ambulatory with steady gait - Psychological Associated symptoms: Normal affect - Skin Skin Temperature: Warm Course - Re-evaluation Re-evalutation: 44-year-old female with multiple complaints, overall suggestive of likely an acute viral illness. She is afebrile and hemodynamically stable, lungs are clear and do not get any focal areas of tenderness on abdominal exam. Patient does not want Covid testing. Will obtain laboratory evaluation, including chest x-ray and EKG. Would not suspect ACS at this time. Given that she is a diabetic and has not checked her sugars recently are taken insulin, will also assess for DKA. 02/09/20 03:16 Hyperglycemia with mild pseudohyponatremia. Normal bicarb, no anion gap and normal pH. Labs are not consistent with DKA. Patient does have a transaminitis with mild elevation of T bili at 1.5, have ordered right upper quadrant ultrasound to assess for any biliary pathology. Urine does not suggest UTI 02/09/20 04:07 Patient care turned over, pending right upper quadrant ultrasound. If negative for acute finding anticipate patient can go home with instructions to have better glycemic control - Vital Signs Vital signs: Temp Pulse Resp BP Pulse Ox 98.9 F 107 H 16 128/74 H 99 02/08/20 23:48 02/08/20 23:38 02/08/20 23:38 02/08/20 23:38 02/08/20 23:38 - Laboratory Result Diagrams: 02/09/20 02:00 02/09/20 02:00 Laboratory results interpreted by me: 02/09/20 02/09/20 02/09/20 01:15 02:00 02:00 WBC 12.4 H Seg Neuts % (Manual) 85 H Band Neutrophils % 1 L Monocytes % (Manual) 0 L Abs Neuts (Manual) 10.7 H Abs Monocytes (Manual) 0.0 L Sodium 132.4 L Chloride 90 L Glucose 325 H Total Bilirubin 1.5 H Direct Bilirubin 0.6 H AST 126 H ALT 116 H Alkaline Phosphatase 209 H Urine Protein >=500 H Urine Glucose (UA) >=500 H Urine Ketones 80 H Urine Blood MODERATE H Discharge - Discharge Clinical Impression: Hyperglycemia due to type 2 diabetes mellitus Qualifiers: Diabetes mellitus 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
[2020-02-09] MEDS ORDERED: RINGERS SOLUTION,LACTATED 1,000 ML IV ONE (01:12)
--- NOTE | 2020-02-09 01:55 | RADIOLOGY REPORT (SQ) ---
AP Portable chest: 02/09/2020 12:53 AM ENTRY MANAGER History: 44-year old patient with concern for infection. Comparison: None available Findings: The cardiomediastinal silhouette is enlarged. No pneumothorax is seen. No acute airspace opacities are seen. No discrete pleural effusion is apparent. Impression: No acute airspace opacities are seen. The cardiomediastinal silhouette is enlarged.
[2020-02-09] MEDS ORDERED: KETOROLAC TROMETHAMINE INJ/PF 30 MG/1 ML SDV IV ONE (02:31)
[2020-02-09 02:32] LABS: VENOUS BLOOD HCO3 21.2 mmol/L (20-32); VENOUS BLOOD PCO2 39.1 mmHg (35-63); VENOUS BLOOD PH 7.35 (7.30-7.42)
[2020-02-09 02:35] LABS: MEAN CORPUSCULAR HGB CONC 34.1 g/dL (32.0-36.0); MEAN CORPUSCULAR VOLUME 97 fl (80-97); PLATELET COUNT 261 10^3/uL (150-450); RED BLOOD COUNT 4.25 10^6/uL (3.72-5.28); RED CELL DISTRIBUTION WIDTH 12.5 % (11.5-14.0); WHITE BLOOD COUNT 12.4 10^3/uL (4.0-10.5)
[2020-02-09 02:39] LABS: APPEARANCE,URINE SLIGHTLY-CLOUDY; BILIRUBIN,URINE NEGATIVE (NEGATIVE); COLOR,URINE YELLOW; GLUCOSE, URINE >=500 mg/dL (NEGATIVE); KETONES,URINE 80 mg/dL (NEGATIVE); LEUKOCYTE ESTERASE,URINE NEGATIVE (NEGATIVE); NITRITE,URINE NEGATIVE (NEGATIVE); PROTEIN,URINE >=500 mg/dL (NEGATIVE); URINE SPECIFIC GRAVITY 1.036; UROBILINOGEN,URINE NEGATIVE mg/dL (<2.0)
[2020-02-09 02:51] LABS: ALBUMIN 4.2 g/dL (3.5-5.0); ALKALINE PHOSPHATASE 209 U/L (38-126); ANION GAP 19 (5-19); ASPARTATE AMINO TRANSFERASE 126 U/L (14-36); BILIRUBIN,DIRECT 0.6 mg/dL (0.0-0.4); BILIRUBIN,TOTAL 1.5 mg/dL (0.2-1.3); BLOOD UREA NITROGEN 9 mg/dL (7-20); CALCIUM 9.2 mg/dL (8.4-10.2); CARBON DIOXIDE 23 mmol/L (22-30); CHLORIDE 90 mmol/L (98-107); GLUCOSE 325 mg/dL (75-110); TOTAL PROTEIN 7.8 g/dL (6.3-8.2)
[2020-02-09 03:05] LABS: ABSOLUTE LYMPHOCYTES# (MANUAL) 1.7 10^3/uL (0.5-4.7); BAND NEUTROPHILS % (MANUAL) 1 % (3-5); BASOPHILS % (MANUAL) 0 % (0-2); EOSINOPHILS % (MANUAL) 0 % (0-6); LYMPHOCYTES % (MANUAL) 14 % (13-45); MONOCYTES % (MANUAL) 0 % (3-13); SEGMENTED NEUTROPHILS % (MAN) 85 % (42-78); TOTAL CELLS COUNTED 100
[2020-02-09 03:07] LABS: ANISOCYTOSIS SLIGHT; OVALOCYTES SLIGHT; PLATELET COMMENT ADEQUATE; POIKILOCYTOSIS SLIGHT; TOXIC GRANULATION 1+
--- NOTE | 2020-02-09 04:27 | RADIOLOGY REPORT (SQ) ---
EXAM: Ultrasound abdomen limited CLINICAL DATA: 44 years Female RUQ pain, elevated LFTs TECHNICAL DATA: Limited sonographic imaging of the right upper quadrant was performed on 02/09/2020 at 3:48 AM. Comparison: CT abdomen and pelvis performed on 10/30/2018. FINDINGS: The liver is normal in size and configuration. The liver demonstrates normal echogenicity. There is a small area of increased echogenicity in the posterior left lobe of the liver which is nonspecific and could represent focal fatty deposition. Otherwise, no focal hepatic abnormalities are identified. Doppler imaging reveals patency of the portal vein and normal hepatopedal flow. The gallbladder is well distended and normal in appearance. There is no evidence of cholelithiasis or sludge. The gallbladder wall measures approximately 1.3 mm in diameter. The common bile duct measures approximately 1.6 mm in diameter. There is no evidence of biliary ductal dilatation. No sonographic Jane sign was detected by the technologist. The right kidney is normal in size, shape and echogenicity without hydronephrosis or definite nephrolithiasis. The right kidney measures 13.4 x 5.1 x 6.9 cm. There is no evidence of free fluid in the abdomen. The visualized pancreas, aorta and inferior vena cava are grossly unremarkable. IMPRESSION: 1. Essentially normal right upper quadrant ultrasound. 2. Small area of increased echogenicity in the posterior left hepatic lobe which is nonspecific and could represent focal fatty deposition.
[2020-02-09 06:00] VITALS: BP 131/83
[2020-02-09] MEDS ORDERED: ACETAMINOPHEN 325 MG TABLET PO ONE (06:02)
--- NOTE | 2020-02-09 07:37 | EKG REPORT ---
SEVERITY:- ABNORMAL ECG - SINUS TACHYCARDIA LEFT ATRIAL ABNORMALITY CONSIDER ANTERIOR INFARCT BORDERLINE T ABNORMALITIES, ANTERIOR LEADS : Confirmed by: Sonu Helton MD 09-Feb-2020 07:35:43
== END 2020-02-09 06:21 | disposition home or self-care (01) ==
LOC: ER 22:45
DX: E11.65 Type 2 diabetes mellitus with hyperglycemia (principal); Z79.4 Long term (current) use of insulin; Z91.14 Patient's other noncompliance with medication regimen; R50.9 Fever, unspecified; R74.01 Elevation of levels of liver transaminase levels; R10.11 Right upper quadrant pain; R10.12 Left upper quadrant pain; R00.0 Tachycardia, unspecified; R11.2 Nausea with vomiting, unspecified; R07.89 Other chest pain; R51.9 Headache, unspecified; R42 Dizziness and giddiness; R06.02 Shortness of breath; F17.200 Nicotine dependence, unspecified, uncomplicated; Z79.1 Long term (current) use of non-steroidal anti-inflammatories (NSAID)
CPT/HCPCS: 93005; 99285; 96361; 96374; 36415; 83690; 85025; 81025; 80053; 81001; 84484; 82803; 71045; 76705; 93010; J3490; J1885; J7120

== ENCOUNTER 2020-02-15 02:59 | Emergency (ER) | payer MEDICAID ==
[2020-02-15] MEDS ORDERED: NORMAL SALINE 500 ML IV ONE (03:19)
[2020-02-15] MEDS ORDERED: ACETAMINOPHEN 325 MG TABLET PO ONE (03:31)
[2020-02-15] MEDS ORDERED: MORPHINE SULFATE 10 MG/ML INJ IV ONE ×2 (03:32→04:57)
[2020-02-15] MEDS ORDERED: NORMAL SALINE 1000 ML 1,000 ML IV ONE ×3 (03:32→08:01)
[2020-02-15] MEDS ORDERED: ONDANSETRON HCL INJ/PF 4 MG/2 ML SDV IV ONE (03:33)
--- NOTE | 2020-02-15 03:34 | ER Document Report ---
ED General - General TRAVEL OUTSIDE OF THE [place] IN LAST 30 DAYS: No <RILEY ORTIZ - Last Filed: 02/15/20 08:12> <SONYA CARCAMO Ignacio - Last Filed: 02/15/20 11:56> - General Chief Complaint: Abdominal Pain Stated Complaint: ABDOMINAL PAIN/CHEST PAIN Time Seen by Provider: 02/15/20 03:25 Primary Care Provider: FRANCES CLARK MD [Primary Care Provider] - Follow up as needed Notes: Patient is a 44-year-old female who comes emergency department for chief compl aint of abdominal pain in the mid to lower abdomen. Patient states she has not felt good for several days, she was seen in the emergency department 5 days ago and diagnosed with a likely viral infection including cough, body aches, lethargy. She states she did not have a fever at that time. She was COVID-19 negative. She states for the past 2 days she has had worsening abdominal pain and this became much worse tonight. She reports nausea but denies vomiting, bowel movements are loose but unremarkable otherwise. She denies dysuria, vaginal bleeding or discharge. She states she is not sexually active. Patient comes by EMS, was given Zofran. Upon arrival to the emergency department she wa s found to have a fever of 101.5 F. Patient has a history of type 2 diabetes on insulin and pills, has a history of noncompliance with these. She has had an appendectomy, denies medical history otherwise. She denies recreational drugs. (RILEY ORTIZ) - Related Data Allergies/Adverse Reactions: No Known Allergies Allergy (Verified 02/15/20 10:37) Past Medical History - General Information source: Patient - Social History Smoking Status: Current Every Day Smoker Chew tobacco use (# tins/day): No Frequency of alcohol use: Occasional Drug Abuse: None Lives with: Family Family History: Reviewed & Not Pertinent, DM, Hypertension - Past Medical History Cardiac Medical History: Denies: Hx Coronary Artery Disease, Hx DVT, Hx Hypercholesterolemia, Hx Hyp ertension, Hx Pulmonary Embolism Pulmonary Medical History: Denies: Hx Asthma, Hx COPD, Hx Respiratory Failure Neurological Medical History: Denies: Hx Seizures Endocrine Medical History: Reports: Hx Diabetes Mellitus Type 2. Denies: Hx Diabetes Mellitus Type 1, Hx Hyperthyroidism, Hx Hypothyroidism Renal/ Medical History: Denies: Hx Peritoneal Dialysis GI Medical History: Denies: Hx Cirrhosis, Hx Gastroesophageal Reflux Disease, Hx Hepatitis Musculoskeletal Medical History: Denies Hx Arthritis, Denies Hx Fibromyalgia, Denies Hx Gout Skin Medical History: Denies Hx Eczema, Denies Hx Psoriasis Infectious Medical History: Denies: Hx Hepatitis Past Surgical History: Reports: Hx Appendectomy, Hx Section, Other - Laparoscopic appendectomy with lysis of adhesions and pelvic washout. <RILEY ORTIZ - Last Filed: 02/15/20 08:12> Review of Systems - Review of Systems Constitutional: See HPI EENT: No symptoms reported Cardiovascular: No symptoms reported Respiratory: No symptoms reported Gastrointestinal: See HPI Genitourinary: No symptoms reported Female Genitourinary: No symptoms reported Musculoskeletal: No symptoms reported Skin: No symptoms reported Hematologic/Lymphatic: No symptoms reported Neurological/Psychological: No symptoms reported <RILEY ORTIZ - Last Filed: 02/15/20 08:12> Physical Exam <RILEY ORTIZ - Last Filed: 02/15/20 08:12> - Vital signs Vitals: Resp Pulse Ox 28 H 97 02/15/20 03:10 02/15/20 03:10 - Notes Notes: GENERAL: Patient very ill-appearing, flushed, slightly tachypneic, appears to be in pain HEAD: Normocephalic, atraumatic. EYES: Pupils equal, round, and reactive to light. Extraocular movements intact. ENT: Oral mucosa moist, tongue midline. Oropharynx unremarkable. Airway patent. NECK: Full range of motion. Supple. Trachea midline. No lymphadenopathy. LUNGS: Clear lungs on auscultation with no rales, rhonchi, or wheezes although patient does have some tachypnea. HEART: Tachycardia, normal rhythm, no murmur ABDOMEN: Diffuse abdominal tenderness in both upper and lower abdomen with guarding throughout. Abdomen is not rigid however. Bowel sounds are present. EXTREMITIES: Moves all 4 extremities spontaneously. No edema, normal radial and dorsalis pedis pulses bilaterally. No cyanosis. BACK: no cervical, thoracic, lumbar midline tenderness. No saddle anesthesia, normal distal neurovascular exam. Moves all extremities in full range of motion. NEUROLOGICAL: Alert and oriented x3. Normal speech. Cranial nerves II through XII grossly intact. Strength 5/5 in all extremities. PSYCH: slightly agitated SKIN: Flushed and hot to the touch (RILEY ORTIZ) Course - Laboratory Result Diagrams: 02/15/20 03:02 02/15/20 03:02 <RILEY ORTIZ - Last Filed: 02/15/20 08:12> - Laboratory Result Diagrams: 02/15/20 03:02 02/15/20 03:02 <SONYA CARCAMO - Last Filed: 02/15/20 11:56> - Re-evaluation Re-evalutation: Patient is very ill-appearing, tachycardic, febrile, very tender abdomen t hroughout concerning for acute abdomen. Starting IV fluids, treating fever, she will be kept n.p.o. CBC shows no leukocytosis but bandemia at 9%, chemistry is concerning with elevated bilirubin, elevated alk phos although lipase is unremarkable. Sodium is low but unremarkable when given correction because of hyperglycemia, hyperglycemia in the 440s but no acidosis. Lactic acid is 2.5. CAT scan will be performed. She did have a recent ultrasound here. Patient has been started on Zosyn and will be given additional IV fluids. 02/15/20 05:34 Patient now as to the history that she was being seen by [facility] for unknown mass around the ovary, she states they "try to make it go away with medications" but it would not, she states she was supposed to schedule for surgery but this did not happen because of the pandemic. Spoke with radiologist, concern for large intrahepatic abscesses and possible tubo-ovarian abscess versus bowel source. I have performed a pelvic examination and there was durga purulent discharge, based on this I suspect a pelvic source initially. I discussed with patient at length. Patient states that she understands that she is ill, may require surgery, will require admission, is requesting if at all possible to be admitted here instead of transfer but understands if she has to be transferred. Patient is likely doing much better, heart rate is down to 108, blood pressure is unremarkable, she is much more comfortable in appearance. 02/15/20 06:30 I called and spoke with Dr. Chandra, on-call for [facility], he states that he is uncertain of the facilities capability to take care of the patient, he recommends I speak with Dr. Quinn general surgery first at 7 AM and then let him know. I called and spoke with Dr. Quinn, he states that he will evaluate the patient and requests that I get hospitalist service involved because of patient's uncontrolled diabetes. He also requests a Pathak. I called Dr. Chandra back and told him this. 02/15/20 07:[address] Michael, hospitalist, she states that they are willing to consult on the patient but unsure of ability to hospitalize patient based on her abscesses. She requested an Accu-Chek and a call back, this will be performed. 02/15/20 08:12 Dr. Quinn has evaluated the patient, Dr. Quinn and Dr. Chandra ([facility]) both recommend that patient is too sick to be handled here and needs tertiary care, they do not feel that [facility] will be able to monitor/manage the patient even with medicine consult at this facility. Patient has requested [facility] transfer. Patient was introduced at bedside to CANDICE Cortes, she has no current complaints, pending ultrasound to clarify tubo- ovarian abscess. (RILEY ORTIZ) 02/15/20 08:17 Called [facility] to initiate transfer. Currently awaiting a return phone call. Was told patient would be placed on a waiting list as there are no beds currently available at this moment. 02/15/20 08:[address] Jeannine Whipple, hospitalist, at [facility] who agrees to accept the patient. She is requesting a rapid COVID test. I will be notified when a bed is available but the wait could be over 24 hours. 02/15/20 08:59 Called by US and notified that the in-room US that was performed was unable to visualize her ovaries. I requested that the patient be brought back to US to have better imaging prior to transfer. Patient's vitals are more stable as patients HR is in 110s, her BP is 130/80 and she is not febrile. 02/15/20 09:14 Called [facility] for transfer as unsure when [facility] will have a bed become available. I spoke with Constantino Price PA-C on the hospitalist team who agrees to accept the patient. Requesting that the imaging be sent over once US has resulted. Will notify when a bed is available. 02/15/20 10:12 [facility] has a bed available and transport is being set up. Charge nurse informed me that the [facility] denied the rapid COVID and as patient has transport on the way it will not be completed in time. Siva Chung informed of this and imaging sent over. I discussed this with the patient and she is in agreement. 02/15/20 10:47 [facility] will be transporting the patient and is set to arrive at 11:30AM. 02/15/20 11:15 Patient re-evaluated. She has no new complaints and vitals are stable. Patient is safe for transport. (SONYA CARCAMO) - Vital Signs Vital signs: Temp Pulse Resp BP Pulse Ox 98 F 29 H 99/63 L 97 02/15/20 10:18 02/15/20 11:30 02/15/20 11:30 02/15/20 11:30 - Laboratory Laboratory results interpreted by me: 02/15/20 02/15/20 02/15/20 03:02 03:02 03:58 Band Neutrophils % 9 H Lymphocytes % (Manual) 10 L VBG pCO2 32.9 L Sodium 125.5 L Chloride 85 L BUN 28 H Glucose 446 H* POC Glucose Lactic Acid Calcium 7.8 L Total Bilirubin 1.8 H Direct Bilirubin 1.4 H AST 292 H ALT 155 H Alkaline Phosphatase 254 H Total Protein 5.7 L Albumin 2.7 L Urine Protein Urine Glucose (UA) Urine Ketones Urine Blood Urine Urobilinogen 02/15/20 02/15/20 02/15/20 03:58 07:45 07:48 Band Neutrophils % Lymphocytes % (Manual) VBG pCO2 Sodium Chloride BUN Glucose POC Glucose 412 H* Lactic Acid 2.5 H Calcium Total Bilirubin Direct Bilirubin AST ALT Alkaline Phosphatase Total Protein Albumin Urine Protein 100 H Urine Glucose (UA) >=500 H Urine Ketones 20 H Urine Blood SMALL H Urine Urobilinogen 4.0 H 02/15/20 10:20 Band Neutrophils % Lymphocytes % (Manual) VBG pCO2 Sodium Chloride BUN Glucose POC Glucose 398 H Lactic Acid Calcium Total Bilirubin Direct Bilirubin AST ALT Alkaline Phosphatase Total Protein Albumin Urine Protein Urine Glucose (UA) Urine Ketones Urine Blood Urine Urobilinogen Discharge <RILEY ORTIZ - Last Filed: 02/15/20 08:12> <SONYA CARCAMO - Last Filed: 02/15/20 11:56> - Discharge Clinical Impression: Tubo-ovarian abscess, Sepsis, Hepatic abscess Condition: Fair Disposition: [facility] Referrals: FRANCES CLARK MD [Primary Care Provider] - Follow up as needed
[2020-02-15 03:45] LABS: ALBUMIN 2.7 g/dL (3.5-5.0); ALKALINE PHOSPHATASE 254 U/L (38-126); ANION GAP 19 (5-19); ASPARTATE AMINO TRANSFERASE 292 U/L (14-36); BILIRUBIN,DIRECT 1.4 mg/dL (0.0-0.4); BILIRUBIN,TOTAL 1.8 mg/dL (0.2-1.3); BLOOD UREA NITROGEN 28 mg/dL (7-20); CALCIUM 7.8 mg/dL (8.4-10.2); CARBON DIOXIDE 22 mmol/L (22-30); CHLORIDE 85 mmol/L (98-107); TOTAL PROTEIN 5.7 g/dL (6.3-8.2)
[2020-02-15 03:58] LABS: GLUCOSE 446 mg/dL (75-110); HEMATOCRIT 37.5 % (36.0-47.0); HEMOGLOBIN 12.7 g/dL (12.0-15.5); MEAN CORPUSCULAR HEMOGLOBIN 32.4 pg (27.0-33.4); MEAN CORPUSCULAR HGB CONC 33.8 g/dL (32.0-36.0); MEAN CORPUSCULAR VOLUME 96 fl (80-97); PLATELET COUNT 340 10^3/uL (150-450); RED CELL DISTRIBUTION WIDTH 13.4 % (11.5-14.0); WHITE BLOOD COUNT 6.4 10^3/uL (4.0-10.5)
[2020-02-15] MEDS ORDERED: PIPERACILLIN/TAZOBACTAM 3.375 GM VIAL IV ONE (03:59)
--- NOTE | 2020-02-15 04:17 | RADIOLOGY REPORT (SQ) ---
EXAM DESCRIPTION: X-ray single view chest. CLINICAL HISTORY: 44 years Female, fever, tachypnea COMPARISON: 02/09/2020 TECHNIQUE: Single portable x-ray view of the chest performed on 02/15/2020 at 3:45 AM FINDINGS: The lung volumes are slightly low. The lungs are grossly clear. There is no evidence of a pneumothorax. The cardiac silhouette is normal in size and configuration. The mediastinal contours are normal. No acute osseous abnormality is identified. No focal soft tissue abnormalities are seen. Lines and tubes: None. IMPRESSION: No evidence of acute intrathoracic disease.
[2020-02-15 04:27] LABS: VENOUS BLOOD BASE EXCESS -2.6 mmol/L; VENOUS BLOOD PCO2 32.9 mmHg (35-63); VENOUS BLOOD PH 7.42 (7.30-7.42)
[2020-02-15 04:30] LABS: ABSOLUTE LYMPHOCYTES# (MANUAL) 0.6 10^3/uL (0.5-4.7); ABSOLUTE MONOCYTES # (MANUAL) 0.3 10^3/uL (0.1-1.4); BAND NEUTROPHILS % (MANUAL) 9 % (3-5); BASOPHILS % (MANUAL) 0 % (0-2); EOSINOPHILS % (MANUAL) 0 % (0-6); LYMPHOCYTES % (MANUAL) 10 % (13-45); MONOCYTES % (MANUAL) 5 % (3-13); SEGMENTED NEUTROPHILS % (MAN) 76 % (42-78); TOTAL CELLS COUNTED 100
[2020-02-15 04:32] LABS: ANISOCYTOSIS SLIGHT; OVALOCYTES SLIGHT; PLATELET COMMENT ADEQUATE
[2020-02-15] MEDS ORDERED: IBUPROFEN 800 MG TABLET PO ONE (04:54)
--- NOTE | 2020-02-15 05:27 | RADIOLOGY REPORT (SQ) ---
EXAM: CT abdomen and pelvis with IV contrast CLINICAL DATA: 44 years Female fever, severe abd pain TECHNICAL DATA: Axial CT imaging of the abdomen and pelvis was performed following the administration of intravenous contrast.. Oral contrast was not administered. Sagittal and coronal reconstructed images were then performed. The CT study is performed according to ALARA (as low as reasonably achievable) or ALARA/IMAGE GENTLY, with automatic adjustment of mA and/or kV according to patient size. Performed on: 02/15/2020 at 4:27 AM. Comparison: CT abdomen and pelvis with contrast performed on 10/30/2018 and abdominal ultrasound performed on 02/09/2020. FINDINGS: Lung bases: The lung bases are grossly clear. Liver: There is a large multiseptated cystic mass in the left hepatic lobe measuring approximately 9.9 x 8.3 cm in cross-sectional diameter. There is an additional large multiseptated cystic mass in the right hepatic lobe measuring approximately 12.7 x 9.3 cm in cross-sectional diameter. There is an additional smaller multiseptated cystic lesion in the dome of the liver. Pyogenic hepatic abscesses are not excluded. Metastatic lesions are considered less likely but not entirely excluded. These findings are new when compared to the prior study. The liver measures approximately 26 cm in craniocaudal dimension. The hepatic and portal veins are patent. There is a small amount of perihepatic ascites. Spleen:The spleen is normal is size, configuration and attenuation. Gallbladder and bile duct: The gallbladder is well distended and unremarkable. There is no biliary ductal dilatation. Pancreas: The pancreas is grossly normal in size and configuration. Adrenal Glands:The adrenal glands are normal in size and configuration. Kidneys:The kidneys are normal in size and configuration. There is no evidence of hydronephrosis. There is no evidence of nephrolithiasis. There is a tiny, stable left renal cortical cyst. Stomach:The stomach is grossly normal. There is no definite hiatal hernia. Bowel:The bowel gas pattern is non specific and non obstructive. There is fluid and fecal residue scattered throughout the colon and rectum. There are a few small bowel loops in the left hemiabdomen which demonstrate bowel wall thickening. This is nonspecific and could be related to enteritis or other inflammatory process. Appendix: The appendix is not confirmed on this examination and is likely surgically absent. Free air:There is no evidence of free air. Free fluid: There is a small amount of perihepatic ascites. Vasculature: The aorta is normal in caliber and contour. The inferior vena cava is grossly unremarkable. Lymphadenopathy: No pathologic lymphadenopathy is identified. Bladder: The bladder is well distended and smooth in contour. Reproductive: The uterus is mildly enlarged but similar when compared to the prior study. The uterus measures approximately 15 cm in length. There is a septated cystic mass in the left adnexal region which contains a few locules of air. Although this could represent an unenhanced bowel loop, a left adnexal abscess is not excluded. This measures approximately 3.9 x 3.2 cm in cross-sectional diameter (series 3, image 65). There is mild infiltration of the adjacent mesenteric fat. Bones: No acute osseous abnormalities are identified. There are vacuum disc changes at L4-L5. Soft tissues: No focal soft tissue abnormalities are identified. IMPRESSION: 1. Interval development of large multiseptated cystic mass lesions in the left and right hepatic lobe and small multiseptated cystic mass in the dome of the liver. These are worrisome for pyogenic liver abscesses. 2. Small amount of perihepatic ascites. 3. Multiseptated cystic lesion in the left adnexal region which contains a few locules of air. It is uncertain if this represents an unopacified loop of bowel or possibly a tubo-ovarian abscess. This measures approximately 3.9 x 3.2 cm in cross-sectional diameter. There is mild infiltration of the adjacent mesenteric fat in this location. 4. Nonspecific small bowel wall thickening in the left hemiabdomen. Findings may be related to enteritis or other inflammatory process. 5. Remote appendectomy. 6. Enlarged uterus. These critical findings were discussed with RAJWINDER Stiles on 02/15/2020 4:22 AM central time.
[2020-02-15 06:04] LABS: BACTERIA (WET MOUNT) 4+ BACTERIA SEEN; EPITHELIALS (WET MOUNT) 4+ EPITHELIALS SEEN; RBCS (WET MOUNT) NO RBCS SEEN; T.VAGINALIS (WET MOUNT) NO TRICHOMONAS SEEN; WBCS (WET MOUNT) 2+ WBCS SEEN; YEAST (WET MOUNT) NO YEAST SEEN
--- NOTE | 2020-02-15 06:40 | EKG REPORT ---
SEVERITY:- ABNORMAL ECG - SINUS TACHYCARDIA NONSPECIFIC INTRAVENTRICULAR CONDUCTION DELAY LA ABNORMALITY PROLONGED QT INTERVAL : Confirmed by: Sonu Helton MD 15-Feb-2020 06:40:02
[2020-02-15 07:29] LABS: CHLAM PCR NOT DETECTED (NOT DETECT)
[2020-02-15 07:56] LABS: APPEARANCE,URINE SLIGHTLY-CLOUDY; BILIRUBIN,URINE NEGATIVE (NEGATIVE); COLOR,URINE AMBER; GLUCOSE, URINE >=500 mg/dL (NEGATIVE); KETONES,URINE 20 mg/dL (NEGATIVE); LEUKOCYTE ESTERASE,URINE NEGATIVE (NEGATIVE); NITRITE,URINE NEGATIVE (NEGATIVE); PROTEIN,URINE 100 mg/dL (NEGATIVE); URINE SPECIFIC GRAVITY 1.037
--- NOTE | 2020-02-15 08:24 | PDOC CONSULTATION ---
Consultation Consult Date: 02/15/20 Attending physician:: DEMETRI ORTIZ Provider Consulted: SANDY TREVIÑO Consult reason:: Intra-abdominal infection History of Present Illness Admission Date/PCP: FRANCES CLARK MD History of Present Illness: EVIE OLSON is a 44 year old female Presents emergency department for the second time in 1 week complaining of abdominal pain, anorexia, nausea vomiting, decreased p.o. intake. Last week she was evaluated, with a gallbladder ultrasound which was interpreted as essentially normal, and diagnosed with oral infection and discharged home. She returned to the emergency department last night complaining of a worsening symptoms, fever of 101+, tachycardia, abdominal pain and purulent discharge from her line. There was no hypotension. White blood cell count 6400 with 9% bands. CT scan of the abdomen and pelvis showed multiple large right and left hepatic lobe complex, septated masses consistent with abscesses, perihepatic fluid, left pelvic adnexal mass consistent with abscess. Surgery was consulted as was CLOSING SPECIALIST. Patient receiving IV fluids, IV pain medication, IV antibiotics. Covid status pending. Past Medical History Past Medical History: Obesity, uncontrolled hypertension, history of pelvic inflammatory disease Cardiac Medical History: Denies: Coronary Artery Disease, DVT, Hyperlipidema, Hypertension, Pulmonary Embolism Pulmonary Medical History: Denies: Asthma, Chronic Obstructive Pulmonary Disease (COPD), Respiratory Failure Neurological Medical History: Denies: Seizures Endocrine Medical History: Reports: Diabetes Mellitus Type 2 Denies: Diabetes Mellitus Type 1, Hyperthyroidism, Hypothyroidism GI Medical History: Denies: Cirrhosis, Gastroesophageal Reflux Disease, Hepatitis Musculoskeltal Medical History: Denies: Arthritis, Fibromyalgia, Gout Skin Medical History: Denies: Eczema, Psoriasis Hematology: Denies: Anemia, Bleeding Tendencies Past Surgical History Past Surgical History: Of appendectomy, incidental, in conjunction with diagnostic laparoscopy, pelvic washout for PID March 2018 Past Surgical History: Reports: Appendectomy, Section, Other - La paroscopic appendectomy with lysis of adhesions and pelvic washout. Social History Information Source: Patient Lives with: Family Smoking Status: Current Every Day Smoker Electronic Cigarette use?: No Frequency of Alcohol Use: Social Hx Recreational Drug Use: No Drugs: Marijuana Hx Prescription Drug Abuse: No Family History Family History: None, Reviewed & Not Pertinent, DM, Hypertension Parental Family History Reviewed: No Children Family History Reviewed: No Sibling(s) Family History Reviewed.: No Medication/Allergy Home Medications: Doxycycline Hyclate 1 cap PO BID 04/15/18 Insulin NPH Hum/Reg Insulin Hm [Humulin 70/30 Kwikpen] 35 unit SQ Q12 30 Days #5 insuln.pen 04/15/18 Metformin HCl [Metformin HCl ER] 500 mg PO Q12 30 Days #60 tab.er.24h 04/15/18 Doxycycline Hyclate 100 mg PO BID #28 capsule 10/30/18 Meloxicam [Mobic] 7.5 mg PO DAILY #7 tablet 10/30/18 Metronidazole [Flagyl 500 mg Tablet] 500 mg PO Q12H #28 tablet 10/30/18 Clindamycin HCl 300 mg PO TID #30 capsule 05/10/19 Ibuprofen [Motrin 800 mg Tablet] 800 mg PO Q8H PRN #30 tab 05/10/19 Metformin HCl [Glucophage 500 mg Tablet] 500 mg PO BID #60 tablet 05/10/19 Sulfamethoxazole/Trimethoprim [Bactrim Ds Tablet] 1 tab PO BID 10 Days #20 table t 05/10/19 Allergies/Adverse Reactions: No Known Allergies Allergy (Verified 10/29/18 21:41) Review of Systems ROS unobtainable: Other - Patient received 10 mg of morphine and is a poor historian Constitutional: PRESENT: as per HPI Eyes: ABSENT: visual disturbances Ears: ABSENT: hearing changes Respiratory: PRESENT: other - Chronic shortness of breath, chronic cough Genitourinary: PRESENT: other - Urinary retention, Neurological: ABSENT: abnormal gait, abnormal speech, confusion, dizziness, focal weakness, syncope Physical Exam Vital Signs: Temp Pulse Resp BP Pulse Ox 98.8 F 24 H 102/71 96 02/15/20 07:36 02/15/20 07:36 02/15/20 07:36 02/15/20 07:36 Intake & Output 02/14/20 02/15/20 02/16/20 06:59 06:59 06:59 Intake Total 2500 Balance 2500 Weight 99.79 kg General appearance: PRESENT: mild distress, other - Affect flat, slurred speech Head exam: PRESENT: normocephalic Eye exam: PRESENT: EOMI Mouth exam: PRESENT: dry mucosa Neck exam: PRESENT: full ROM Respiratory exam: PRESENT: rhonchi Cardiovascular exam: PRESENT: tachycardia Pulses: PRESENT: normal carotid pulses, normal radial pulses, normal femoral pulses GI/Abdominal exam: PRESENT: other - Diffusely tender with guarding, worse in the right upper quadrant Rectal exam: PRESENT: deferred Gentrourinary exam: PRESENT: other - Did not examine the pelvis Extremities exam: PRESENT: full ROM Musculoskeletal exam: PRESENT: full ROM Neurological exam: PRESENT: oriented to person, oriented to place, oriented to time, oriented to situation Psychiatric exam: PRESENT: flat affect, other - Affect flat Skin exam: PRESENT: dry Results Laboratory Results: 02/15/20 03:02 02/15/20 03:02 02/15/20 02/15/20 02/15/20 03:02 03:02 03:02 WBC 6.4 RBC 3.90 Hgb 12.7 Hct 37.5 MCV 96 MCH 32.4 MCHC 33.8 RDW 13.4 Plt Count 340 Seg Neutrophils % Not Reportable VBG pH VBG pCO2 VBG HCO3 VBG Base Excess Sodium 125.5 L Potassium 4.0 Chloride 85 L Carbon Dioxide 22 Anion Gap 19 BUN 28 H Creatinine 0.76 Est GFR ( Amer) > 60 Glucose 446 H* Lactic Acid Calcium 7.8 L Total Bilirubin 1.8 H AST 292 H Alkaline Phosphatase 254 H Total Protein 5.7 L Albumin 2.7 L Lipase 72.6 Serum HCG, Qual NEGATIVE Urine Color Urine Appearance Urine pH Ur Specific [place] Urine Protein Urine Glucose (UA) Urine Ketones Urine Blood Urine Nitrite Ur Leukocyte Esterase Urine WBC (Auto) Urine RBC (Auto) 02/15/20 02/15/20 02/15/20 03:58 03:58 06:50 WBC RBC Hgb Hct MCV MCH MCHC RDW Plt Count Seg Neutrophils % VBG pH 7.42 VBG pCO2 32.9 L VBG HCO3 21.0 VBG Base Excess -2.6 Sodium Potassium Chloride Carbon Dioxide Anion Gap BUN Creatinine Est GFR ( Amer) Glucose Lactic Acid 2.5 H 1.3 Calcium Total Bilirubin AST Alkaline Phosphatase Total Protein Albumin Lipase Serum HCG, Qual Urine Color Urine Appearance Urine pH Ur Specific [place] Urine Protein Urine Glucose (UA) Urine Ketones Urine Blood Urine Nitrite Ur Leukocyte Esterase Urine WBC (Auto) Urine RBC (Auto) 02/15/20 07:45 WBC RBC Hgb Hct MCV MCH MCHC RDW Plt Count Seg Neutrophils % VBG pH VBG pCO2 VBG HCO3 VBG Base Excess Sodium Potassium Chloride Carbon Dioxide Anion Gap BUN Creatinine Est GFR ( Amer) Glucose Lactic Acid Calcium Total Bilirubin AST Alkaline Phosphatase Total Protein Albumin Lipase Serum HCG, Qual Urine Color CARLOS Urine Appearance SLIGHTLY-CLOUDY Urine pH 5.0 Ur Specific [place] 1.037 Urine Protein 100 H Urine Glucose (UA) >=500 H Urine Ketones 20 H Urine Blood SMALL H Urine Nitrite NEGATIVE Ur Leukocyte Esterase NEGATIVE Urine WBC (Auto) 2 Urine RBC (Auto) 1 Impressions: Chest X-Ray 02/15/20 03:31 IMPRESSION: No evidence of acute intrathoracic disease. Abdomen/Pelvis CT 02/15/20 03:37 IMPRESSION: 1. Interval development of large multiseptated cystic mass lesions in the left and right hepatic lobe and small multiseptated cystic mass in the dome of the liver. These are worrisome for pyogenic liver abscesses. 2. Small amount of perihepatic ascites. 3. Multiseptated cystic lesion in the left adnexal region which contains a few locules of air. It is uncertain if this represents an unopacified loop of bowel or possibly a tubo-ovarian abscess. This measures approximately 3.9 x 3.2 cm in cross-sectional diameter. There is mild infiltration of the adjacent mesenteric fat in this location. 4. Nonspecific small bowel wall thickening in the left hemiabdomen. Findings may be related to enteritis or other inflammatory process. 5. Remote appendectomy. 6. Enlarged uterus. These critical findings were discussed with RAJWINDER Stiles on 02/15/2020 4:22 AM central time. Assessment & Plan - Diagnosis (1) Sepsis Is this a current diagnosis for this admission?: Yes Plan: Impression: Acute intra-abdominal sepsis due to pelvic infection, likely tubo- ovarian abscess, left adnexa, now with multiple large intrahepatic multi septated masses consistent with abscesses; minimal intra-abdominal ascites; no evidence of bowel obstruction, or free peritoneal air. Doubt patient has an acute general surgery lesion requiring immediate surgical intervention Recommendations: 1. Agree with the resuscitation including IV fluids, IV antibiotics, IV insulin, rapid Covid test, and pain management; await CLOSING SPECIALIST and hospitalist consultations 2. Given the complexity of this intra-abdominal septic patient, with morbid obesity, uncontrolled diabetes mellitus, and with apparent multiple liver a bscesses, I believe she would best be served by transfer to a tertiary care facility with more extensive clinical resources including deeper bench of clinicians, extensive interventional radiology, hepatology, etc. 3. The above discussed with Demetri [place], PA (2) Liver abscess Is this a current diagnosis for this admission?: Yes (3) Tubo-ovarian abscess Is this a current diagnosis for this admission?: Yes (4) Diabetes mellitus type 2 in obese Is this a current diagnosis for this admission?: Yes (5) Fever Is this a current diagnosis for this admission?: Yes (6) Obesity (BMI 30-39.9) Is this a current diagnosis for this admission?: Yes (7) Tobacco use disorder, moderate, dependence Is this a current diagnosis for this admission?: Yes
[2020-02-15] MEDS ORDERED: INSULIN REG, HUMAN 100 UNIT/ML 3 ML VIAL (PYX) IV ONE (08:30)
--- NOTE | 2020-02-15 10:36 | RADIOLOGY REPORT (SQ) ---
EXAM DESCRIPTION: U/S NON-OB PELVIS TV W/O DOP IMAGES COMPLETED DATE/TIME: 02/15/2020 10:13 am REASON FOR STUDY: ? TOA, fever, pain COMPARISON: 10/30/2018 TECHNIQUE: Dynamic and static grayscale images acquired of the pelvis via transabdominal and transva ginal approach and recorded on PACS. Additional selected color Doppler and spectral images recorded. LIMITATIONS: None. FINDINGS: UTERUS: Contour normal. No mass. ENDOMETRIAL STRIPE: No focal or generalized thickening. No masses. CERVIX: No nabothian cysts. RIGHT OVARY AND DOPPLER: The right ovary could not be visualize. No masses are noted. LEFT OVARY AND DOPPLER: The left ovary could not be identified. No masses are identified. FREE FLUID: None noted. OTHER: No other significant finding. MEASUREMENTS: UTERUS: 12.5 x 7.2 x 6.6 cm. ENDOMETRIAL STRIPE: 3.2 mm. RIGHT OVARY: Not visualized. LEFT OVARY: Not visualized. IMPRESSION: The cystic mass described in the left adnexae could not be identified on pelvic ultrasou nd either transabdominally or transvaginally. TECHNICAL DOCUMENTATION: JOB ID: [id number] 2010 [employer]- All Rights Reserved Rev-08/02 Reading location - IP/workstation name: [email or web address]
[2020-02-15 11:41] VITALS: BP 99/63
== END 2020-02-15 11:40 | disposition short-term general hospital (02) ==
LOC: ER 02:59
DX: N70.93 Salpingitis and oophoritis, unspecified (principal); K75.0 Abscess of liver; A41.9 Sepsis, unspecified organism; R50.9 Fever, unspecified; R10.30 Lower abdominal pain, unspecified; R07.9 Chest pain, unspecified; R00.0 Tachycardia, unspecified; F17.200 Nicotine dependence, unspecified, uncomplicated; E11.9 Type 2 diabetes mellitus without complications; Z79.4 Long term (current) use of insulin
CPT/HCPCS: 93005; 96376; 99285; 96361; 51702; 96375; 96365; 36415; 87040; 87210; 82962; 83605; 83690; 84703; 85025; 87077; 80053; 81001; 87491; 87591; 82803; 87150 ×26; 71045; 76830; 74177; 93010; J3490 ×2; J2270; J1815; J2405; J7030; J7040; J2543